=== PATIENT | female | born 1955 | race African-American/Black ===

== ENCOUNTER 2016-12-06 12:41 | Emergency (ER) | payer OTHER ==
[~2016-12-06] VITALS: Ht 160 cm; Wt 116.0 kg
[~2016-12-06 12:41] MED LIST: ADVIN25/60 INH; ALBU1AER9 INH; ASPI81TA28 PO; BSP/10 PO; BUPRTAB PO; CETI10CA PO; DSY/150 PO; GDN80 PO; HYDR50CA2 PO; ISOS30TA13 PO; LPR25 PO; MELO7.5T7 PO; RMRS/45 PO
[2016-12-06 12:45] VITALS: TEMP 36.5; Ht 160 cm; Wt 116.0 kg
[2016-12-06] MEDS ORDERED: VNTHFA/IN INH (13:16)
[2016-12-06] MEDS ORDERED: ISOS-11 PO (13:16)
[2016-12-06] MEDS ORDERED: LORAZEPAM 1 MG TAB PO STA (13:37)
--- NOTE | 2016-12-06 14:17 | DIAGNOSTIC IMAGING REPORT ---
CT SCAN OF THE BRAIN WITHOUT IV CONTRAST CLINICAL HISTORY: Headache. COMPARISON STUDY: CT of the brain dated 07/18/2013. TECHNIQUE: Unenhanced axial CT scan of the brain is performed from the vertex to the skull base. Automated dose control exposure was utilized. FINDINGS: Brain parenchyma: The brain parenchyma is normal in appearance. There is no hemorrhage, mass effect, or evidence of acute territorial ischemia by CT criteria. Liz-white matter is preserved. No extra-axial fluid collection is seen. Ventricles, sulci, cisterns: Normal in configuration. Intracranial vasculature: The visualized intracranial vasculature at the skull base is normal in appearance. Calvarium: The calvarium appears intact. A bone island is incidentally noted in the clivus end unchanged. Sinuses and mastoids: The visualized paranasal sinuses are clear. The mastoid air cells are well pneumatized. Orbits: The bony orbits are grossly intact. Minimal proptosis is suggested. IMPRESSION: No acute intracranial abnormality. Electronically signed by: Dale Buchanan M.D. 12/06/2016 2:15 PM Dictated Date/Time: 12/06/2016 2:09 PM
--- NOTE | 2016-12-06 14:19 | DIAGNOSTIC IMAGING REPORT ---
SINUS CT WITHOUT CONTRAST CLINICAL HISTORY: Right-sided headache. COMPARISON STUDY: Head CT July 18, 2013. Technique: Helical axial images of the sinuses were obtained without IV contrast. Coronal reformats were viewed. FINDINGS: The head CT will be reported separately. The mastoid air cells are clear. Note is made of apparent proptosis, greater on the right. There is minimal mucosal thickening of the sinuses. Major drainage pathways are patent. There is no mass within the sinuses or the nasal cavity. There is minimal leftward deviation of the nasal septum without significant spur formation. IMPRESSION: Minimal mucosal thickening of the sinuses. No evidence of acute sinusitis. Patent major drainage pathways. Electronically signed by: mEiliano Porras M.D. 12/06/2016 2:17 PM Dictated Date/Time: 12/06/2016 2:09 PM
[2016-12-06] MEDS ORDERED: KETOROLAC TROMETHAMINE 60 MG/2 ML VIAL IM STA (14:58)
[2016-12-06] MEDS ORDERED: OXYCODONE/ACETAMINOPHEN 5-325 TAB PO ONE (15:00)
[2016-12-06] MEDS ORDERED: LEVO500T19 PO (15:03)
--- NOTE | 2016-12-06 15:04 | EMERGENCY ROOM VISIT NOTE ---
History Report prepared by Francesca: Keli Silvestre Under the Supervision of: Dr. Anish Jones D.O. First contact with patient: 13:28 Chief Complaint: HEADACHE Stated Complaint: HAD FLU, STARTED GETTING HEADACHES ON R SIDE History of Present Illness The patient is a 61 year old female who presents to the Emergency Room with complaints of a persistent headache on the right side of her head for the past week. She currently rates her discomfort as an 8/10 in severity. The patient states that at beginning of the year she was diagnosed with the flu. She states that last week she developed the headache. The patient states that she still has a persistent productive cough. She states that she went to her dentist because she thought her headache was from dental pain. The patient states that she had x-rays did not show anything so she states that her dentist told her to see her PCP for a possible gum infection or sinus infection. The patient states that she just finished Azithromycin for her flu symptoms. The patient denies any nausea or increased shortness of breath. She notes that each morning she has been waking up feeling dry with a dry cough. Source of History: patient Onset: past week Position: head (right side) Symptom Intensity: 8/10 Timing: other (persistent) Associated Symptoms: + cough, No SOB, No nausea Review of Systems See HPI for pertinent positives & negatives. A total of 10 systems reviewed and were otherwise negative. Past Medical & Surgical Medical Problems: (1) Mass of uterus Family History FHx: cancer Social History Smoking Status: Current Every Day Smoker Marital Status: single Occupation Status: unemployed, disabled Current/Historical Medications Scheduled Albuterol Hfa (Ventolin Hfa), 2 PUFFS INH QID Aspirin (Aspirin Ec), 81 MG PO DAILY Bupropion Hcl (Wellbutrin Xl), 150 MG PO BID Buspirone HCl (Buspirone HCl), 20 MG PO BID Cetirizine Hcl (Zyrtec Allergy), 10 MG PO DAILY Fluticasone Prop/Salmeterol (Advair Diskus 250/50 60 Dose), 1 PUFF INH BID Isosorbide Mononitrate (Isosorbide Mononitrate ER), 30 MG PO DAILY Levofloxacin (Levaquin), 1 TAB PO DAILY Metoprolol Tartrate (Lopressor), 12.5 MG PO BID Ziprasidone (Ziprasidone HCl), 80 MG PO BID Scheduled PRN Hydroxyzine Pamoate (Vistaril), 50 MG PO Q8 PRN for Anxiety Meloxicam (Mobic), 7.5-15 MG PO DAILY PRN for Pain Mirtazapine (Mirtazapine), 45 MG PO HS PRN for Sleep Allergies Coded Allergies: No Known Allergies (Unverified , 12/06/16) Physical Exam Vital Signs Date Time Temp Pulse Resp B/P Pulse Ox O2 Delivery O2 Flow Rate FiO2 12/06/16 14:37 65 18 124/62 98 Room Air 12/06/16 12:45 36.5 77 18 147/101 96 Room Air Physical Exam CONSTITUTIONAL/VITAL SIGNS: Reviewed / noted above. GENERAL: Non-toxic in appearance. INTEGUMENTARY: Warm, dry, and [place]. HEAD: Normocephalic. Tenderness to percussion of right maxillary sinus. EYES: without scleral icterus or trauma. ENT/OROPHARYNX: clear and moist. LYMPHADENOPATHY/NECK: Is supple without lymphadenopathy or meningismus. RESPIRATORY: Lungs clear and equal. CARDIOVASCULAR: Regular rate and rhythm. GI/ABDOMEN: Soft and nontender. No organomegaly or pulsatile mass. No rebound or guarding. Normal bowel sounds. EXTREMITIES: Warm and well perfused. BACK: No CVA tenderness. NEUROLOGICAL: Intact without focal deficits. PSYCHIATRIC: normal affect. MUSCULOSKELETAL: Normally developed with good muscle tone. Medical Decision & Procedures ER Provider Diagnostic Interpretation: CT results as stated below per my review and radiologist interpretation: SINUS CT WITHOUT CONTRAST CLINICAL HISTORY: Right-sided headache. COMPARISON STUDY: Head CT July 18, 2013. Technique: Helical axial images of the sinuses were obtained without IV contrast. Coronal reformats were viewed. FINDINGS: The head CT will be reported separately. The mastoid air cells are clear. Note is made of apparent proptosis, greater on the right. There is minimal mucosal thickening of the sinuses. Major drainage pathways are patent. There is no mass within the sinuses or the nasal cavity. There is minimal leftward deviation of the nasal septum without significant spur formation. IMPRESSION: Minimal mucosal thickening of the sinuses. No evidence of acute sinusitis. Patent major drainage pathways. Electronically signed by: Emiliano Porras M.D. 12/06/2016 2:17 PM Dictated Date/Time: 12/06/2016 2:[address] SCAN OF THE BRAIN WITHOUT IV CONTRAST CLINICAL HISTORY: Headache. COMPARISON STUDY: CT of the brain dated 07/18/2013. TECHNIQUE: Unenhanced axial CT scan of the brain is performed from the vertex to the skull base. Automated dose control exposure was utilized. FINDINGS: Brain parenchyma: The brain parenchyma is normal in appearance. There is no hemorrhage, mass effect, or evidence of acute territorial ischemia by CT criteria. Liz-white matter is preserved. No extra-axial fluid collection is seen. Ventricles, sulci, cisterns: Normal in configuration. Intracranial vasculature: The visualized intracranial vasculature at the skull base is normal in appearance. Calvarium: The calvarium appears intact. A bone island is incidentally noted in the clivus end unchanged. Sinuses and mastoids: The visualized paranasal sinuses are clear. The mastoid air cells are well pneumatized. Orbits: The bony orbits are grossly intact. Minimal proptosis is suggested. IMPRESSION: No acute intracranial abnormality. Electronically signed by: Dale Buchanan M.D. 12/06/2016 2:15 PM Dictated Date/Time: 12/06/2016 2:09 PM Medications Administered Medications (Trade) Dose Ordered Sig/Bib Route Start Time Stop Time Status Last Admin Dose Admin Lorazepam (Ativan Tab) 1 mg NOW STAT PO 12/06/16 13:37 12/06/16 13:39 DC 12/06/16 13:52 1 MG ED Course 1329: Previous medical records were reviewed. The patient was evaluated in room C12B. A complete history and physical examination was performed. 1337: Ordered Ativan Tab 1 mg PO. 1456: I reevaluated the patient and she is resting comfortably. I discussed the exam findings and I discussed the treatment plan. She verbalized complete understanding and agreement. She is ready to go home. 1458: Ordered Toradol Inj 60 mg IM. 1500: Ordered Oxycodone/Acetaminophen 1 tab PO. Medical Decision Differential includes: Acute intracranial bleed, trauma, meningitis, encephalitis, increased intracranial pressure, mass or mass effect, facial or dental infection, temporal arteritis, CVA, TIA, acute hypertensive emergency, sinusitis, carbon monoxide exposure. This is a 61-year-old female who presents to the ED with chief complaint of right-sided headache. The patient has had some recent flulike illnesses. She states that her voice is hoarse. She also has a cough. She states that her right ear is bothering her. She initially thought it might be related to a dental infection but saw dentist and they states that she does not have an infection. She is concerned about a sinus infection. Her exam revealed some tenderness to percussion over the right maxillary sinus. Exam was otherwise unremarkable. No abnormal ocular findings or tenderness to the temporal area. She is no facial swelling. Tympanic membrane was clear. There is no exudative pharyngitis or significant erythema. CT scan of the brain and sinuses did not show any acute process. The patient was treated with Toradol IM and Percocet by mouth. Per the patient's request, she was at an additional antibiotic. She'll be given Levaquin for 7 days. She does sound like she has laryngitis on exam in addition to the above findings. Impression Primary Impression: Headache Additional Impression: Upper respiratory infection Scribe Attestation The scribe's documentation has been prepared under my direction and personally reviewed by me in its entirety. I confirm that the note above accurately reflects all work, treatment, procedures, and medical decision making performed by me. Departure Information Dispostion Home / Self-Care Prescriptions Levofloxacin (LEVAQUIN) 500 Mg Tab 1 TAB PO DAILY for 7 Days, #7 TAB Prov: Anish Jones D.O. 12/06/16 Referrals Heidi Quintero M.D. (PCP) Forms HOME CARE DOCUMENTATION FORM, IMPORTANT VISIT INFORMATION Patient Instructions [facility] Additional Instructions Levaquin as prescribed. Follow-up with your doctor for further care and evaluation in 5-7 days if symptoms persist. Return to the emergency department for worsening or new symptoms or any concerns. You have been examined and treated today on an emergency basis only. This is not a substitute for, or an effort to provide, complete comprehensive medical care. It is impossible to recognize and treat all injuries or illnesses in a single emergency department visit. It is therefore important that you follow up closely with your doctor. Call as soon as possible for an appointment. Problem Qualifiers
[2016-12-06 15:32] VITALS: BP 125/62; PULSE 63; O2SAT 98
== END 2016-12-06 15:34 | disposition home or self-care (01) ==
LOC: C.EDB 12:43 → C.EDC 15:34
DX: R51 Headache (principal); J06.9 Acute upper respiratory infection, unspecified; F17.200 Nicotine dependence, unspecified, uncomplicated; Z79.82 Long term (current) use of aspirin

== ENCOUNTER 2017-12-24 10:06 | Emergency (ER) | payer OTHER ==
[~2017-12-24] VITALS: Ht 160 cm; Wt 109.0 kg
[~2017-12-24 10:06] MED LIST changes: -ALBU1AER9 INH; -DSY/150 PO; +ISOS-11 PO; -ISOS30TA13 PO; +VNTHFA/IN INH
[2017-12-24 10:24] VITALS: TEMP 36.7; Ht 160 cm; Wt 109.0 kg
[2017-12-24] MEDS ORDERED: OXYCODONE HCL IR 5 MG TAB (IMMEDIATE RELEASE) PO STA (11:07)
[2017-12-24] MEDS ORDERED: MELO7.5T5 PO (11:27)
[2017-12-24] MEDS ORDERED: QUET1TAB34 PO (11:27)
[2017-12-24] MEDS ORDERED: GABA-112 PO (11:27)
--- NOTE | 2017-12-24 11:38 | DIAGNOSTIC IMAGING REPORT ---
HEAD WITHOUT CONTRAST (CT) CT DOSE: 1185.47 mGy.cm HISTORY: Mental status change CHI c/ LOC TECHNIQUE: Multiaxial CT images of the head were performed without the use of intravenous contrast. A dose lowering technique was utilized adhering to the principles of ALARA. Comparison: 12/06/2016 Findings: The paranasal sinuses and mastoid air cells are clear. The calvarium and skull base are intact. The ventricles and sulci are within normal limits. There is no mass, hematoma, midline shift, or acute infarct. Mild chronic small vessel change. Impression: No acute intracranial abnormality. The above report was generated using voice recognition software. It may contain grammatical, syntax or spelling errors. Electronically signed by: Nick Duke M.D. 12/24/2017 11:36 AM Dictated Date/Time: 12/24/2017 11:35 AM
--- NOTE | 2017-12-24 11:51 | DIAGNOSTIC IMAGING REPORT ---
CT SCAN OF THE CERVICAL SPINE CLINICAL HISTORY: Fall with head injury. COMPARISON STUDY: Radiographs of the cervical spine dated 03/15/2014. TECHNIQUE: CT scan of the cervical spine is performed from the skull base to the upper thoracic spine. Images are reviewed in the axial, sagittal, and coronal planes. IV contrast was not administered for this examination. A dose lowering technique was utilized adhering to the principles of ALARA. FINDINGS: Skeletal structures: The skeletal structures are osteopenic. There is no evidence of fracture or subluxation involving the cervical spine. Vertebral body height and alignment are maintained. There is straightening of the cervical lordosis. The odontoid process and lateral masses are intact. The atlantoaxial articulation is preserved noting productive degenerative change. Anterior osteophytes are seen in the mid to lower cervical region. The spinous processes appear intact. There is partial bony fusion of the right transverse process of C7 and the right first rib. There is mild to moderate multilevel cervical spondylosis. Uncovertebral and facet arthropathy contribute to neural foraminal narrowing in the lower cervical region at several levels. Intervertebral discs: Mild disc space narrowing is seen at C4-C5 and C5-C6. The remaining disc spaces appear maintained. Central canal: Posterior disc osteophyte complexes at C4-C5 and C5-C6 likely contribute to acquired compromise of the central canal. Soft tissues: The prevertebral and paraspinous soft tissues are within normal limits. Findings suggest multinodular goiter, with the left thyroid lobe extending to the superior mediastinum. Calvarium: The visualized calvarium at the skull base appears intact. Brain parenchyma: Partially visualized brain parenchyma the skull base is within normal limits. Sinuses and mastoids: The visualized paranasal sinuses are clear. The mastoid air cells are well pneumatized. Lung apices: Clear as visualized. IMPRESSION: 1. There is no evidence of fracture or subluxation involving the cervical spine. 2. Osteopenia and spondylotic change as above. 3. Findings suggest multinodular goiter. Follow-up with a nonemergent thyroid ultrasound is recommended for further assessment. Electronically signed by: Dale Buchanan M.D. 12/24/2017 11:50 AM Dictated Date/Time: 12/24/2017 11:47 AM
--- NOTE | 2017-12-24 12:36 | DIAGNOSTIC IMAGING REPORT ---
LUMBAR SPINE 5 VIEWS CLINICAL HISTORY: Fall with low back pain. FINDINGS: Five views of the lumbar spine are compared to study dated 07/18/2013. The skeletal structures are osteopenic. There is no radiographic evidence of fracture or malalignment. Vertebral body height is maintained throughout the lumbar spine. Minimal anterolisthesis is seen at L4-L5. Alignment is otherwise preserved. The transverse and spinous processes appear intact. There is no evidence of spondylolysis. Moderate facet arthropathy is seen in the lower lumbar region. Tiny anterior osteophytes are noted throughout. There is mild disc space narrowing at L4-L5. The remaining disc spaces are preserved. The visualized bony pelvis appears intact. Large enthesophytes arise from the anterior superior iliac spine bilaterally. No bowel obstruction is seen. Vascular calcifications and phleboliths are observed in the pelvis. Atherosclerotic calcification is noted in the abdominal aorta. IMPRESSION: 1. No acute bony abnormality is seen involving the lumbar spine. 2. Osteopenia and mild spondylotic change as above. Dictated: 12/24/2017 11:55 AM Transcribed: 12/24/2017 12:36 PM [email or web address] Electronically signed by: Dale Buchanan M.D. 12/24/2017 12:38 PM Dictated Date/Time: 12/24/2017 11:55 AM
[2017-12-24] MEDS ORDERED: OXYC1TAB3 PO (13:11)
[2017-12-24 13:20] VITALS: BP 167/89; PULSE 78; O2SAT 99
--- NOTE | 2017-12-24 21:21 | EMERGENCY ROOM VISIT NOTE ---
History First contact with patient: 10:55 Chief Complaint: PAIN (GENERALIZED) Stated Complaint: HEAD INJURY, BLOODY NOSE, BLURRED VISION History of Present Illness The patient is a 62 year old female who presents to the Emergency Room with complaints of persistent headache, neck pain and epistaxis. The patient reports that she fell 10/14/18, striking her head on a wall. She also reports sustaining a left shoulder dislocation. This happened when she was in [place]. She was [facility] [place]. She had the shoulder reduced and was provided a sling. The patient reports that she was instructed to follow-up with an orthopedic surgeon, however does not have a local family doctor or surgeon. She has an appointment to see a new family doctor tomorrow. The patient reports that she did not have any further imaging studies of her head and neck. The patient reports that she was provided a prescription for hydrocodone which is not helping with her shoulder pain. She rates her headache a 6 out of 10. The patient is right-hand- dominant. She denies any back pain, chest pain, shortness of breath or abdominal pain. Review of Systems 10 system review was performed and was negative except for pertinent positives and negatives as indicated in history of present illness Past Medical/Surgical History Medical Problems: (1) Anxiety State Nos (2) Asthma, Unspecified (3) Calcif Tendinitis Shlder (4) Coronary Atherosclerosis Of [place] Coronary Vessel (5) Depressive Disorder Nec (6) Hyperlipidemia Nec/Nos (7) Lumbago (8) Lumbosacral Neuritis Nos (9) Mass of uterus (10) Morbid Obesity Family History FH: hypertension FHx: cancer Social History Smoking Status: Current Every Day Smoker Alcohol Use: occasionally Marital Status: single Occupation Status: unemployed, disabled Current/Historical Medications Scheduled Gabapentin (Neurontin), 100 MG PO TID Quetiapine Fumarate (Seroquel), 100 MG PO PM Scheduled PRN Meloxicam (Mobic), 15 MG PO DAILY PRN for Pain Oxycodone Ir (Roxicodone Ir), 1-2 TAB PO Q4H PRN for Pain Physical Exam Vital Signs Date Time Temp Pulse Resp B/P (MAP) Pulse Ox O2 Delivery O2 Flow Rate FiO2 12/24/17 13:20 78 18 167/89 99 12/24/17 10:24 36.7 81 18 185/100 99 Room Air Physical Exam CONSTITUTIONAL: Obese female, alert and oriented X 3 with positive affect. Patient appears in mild discomfort on my exam. HEENT: Normocephalic, atraumatic. Pupils equal, round and reactive. No subconjunctival hemorrhage, raccoon's eyes, epistaxis, hemotympanum or Maradiaga sign. NECK: The patient is exhibiting full active range of motion without any obvious discomfort. RESPIRATORY: Clear to auscultation bilaterally with no wheezing, crackles, rhonchi or stridor. CARDIOVASCULAR: Regular rate and rhythm with no murmurs, rubs or gallops. GASTROINTESTINAL: Bowel sounds present in all quadrants. Soft and nontender to palpation. MUSCULOSKELETAL: Examination shows general tenderness to palpation about the entire left shoulder. No significant pain with gentle internal or external rotation. Equal hand care clinician bilaterally. Capillary refill is less than 2 seconds. The patient has no tenderness to palpation through the central thoracolumbar spine. Distal pulses are intact. INTEGUMENTARY: No rash or other significant dermatologic conditions noted. NEUROLOGIC: Cranial nerves II-XII grossly intact. No focal neurologic deficits noted. Upper extremities are sensory intact. No ataxia with ambulation. Medical Decision & Procedures ER Provider Diagnostic Interpretation: Noncontrast CT of the cervical spine does not show any acute fractures. A multinodular goiter is suspected. Radiologist report is as follows: CT SCAN OF THE CERVICAL SPINE CLINICAL HISTORY: Fall with head injury. COMPARISON STUDY: Radiographs of the cervical spine dated 03/15/2014. TECHNIQUE: CT scan of the cervical spine is performed from the skull base to the upper thoracic spine. Images are reviewed in the axial, sagittal, and coronal planes. IV contrast was not administered for this examination. A dose lowering technique was utilized adhering to the principles of ALARA. FINDINGS: Skeletal structures: The skeletal structures are osteopenic. There is no evidence of fracture or subluxation involving the cervical spine. Vertebral body height and alignment are maintained. There is straightening of the cervical lordosis. The odontoid process and lateral masses are intact. The atlantoaxial articulation is preserved noting productive degenerative change. Anterior osteophytes are seen in the mid to lower cervical region. The spinous processes appear intact. There is partial bony fusion of the right transverse process of C7 and the right first rib. There is mild to moderate multilevel cervical spondylosis. Uncovertebral and facet arthropathy contribute to neural foraminal narrowing in the lower cervical region at several levels. Intervertebral discs: Mild disc space narrowing is seen at C4-C5 and C5-C6. The remaining disc spaces appear maintained. Central canal: Posterior disc osteophyte complexes at C4-C5 and C5-C6 likely contribute to acquired compromise of the central canal. Soft tissues: The prevertebral and paraspinous soft tissues are within normal limits. Findings suggest multinodular goiter, with the left thyroid lobe extending to the superior mediastinum. Calvarium: The visualized calvarium at the skull base appears intact. Brain parenchyma: Partially visualized brain parenchyma the skull base is within normal limits. Sinuses and mastoids: The visualized paranasal sinuses are clear. The mastoid air cells are well pneumatized. Lung apices: Clear as visualized. IMPRESSION: 1. There is no evidence of fracture or subluxation involving the cervical spine. 2. Osteopenia and spondylotic change as above. 3. Findings suggest multinodular goiter. Follow-up with a nonemergent thyroid ultrasound is recommended for further assessment. Noncontrast CT of the head shows no evidence for fracture or intracranial bleed. Radiologist report is as follows: HEAD WITHOUT CONTRAST (CT) CT DOSE: 1185.47 mGy.cm HISTORY: Mental status change CHI c/ LOC TECHNIQUE: Multiaxial CT images of the head were performed without the use of intravenous contrast. A dose lowering technique was utilized adhering to the principles of ALARA. Comparison: 12/06/2016 Findings: The paranasal sinuses and mastoid air cells are clear. The calvarium and skull base are intact. The ventricles and sulci are within normal limits. There is no mass, hematoma, midline shift, or acute infarct. Mild chronic small vessel change. Impression: No acute intracranial abnormality. My interpretation of lumbar spine x-rays does not show any acute fractures, subluxations or spondylolisthesis. Radiologist report is as follows: Medications Administered Medications (Trade) Dose Ordered Sig/Bib Route Start Time Stop Time Status Last Admin Dose Admin Oxycodone HCl (Roxicodone Immediate Rel Tab) 5 mg NOW STAT PO 12/24/17 11:07 12/24/17 11:10 DC 12/24/17 11:18 5 MG ED Course Patient history and physical exam were performed. Nurse's notes were reviewed. Vital signs were reviewed, showing a blood pressure 185/100. The patient requested something for her shoulder pain. The patient was administered OxyIR 5 mg after confirming that she would be able to secure a ride home. She is concerned that CT imaging was not performed of her head and neck when she fell. Noncontrast CT of the head and cervical spine today were normal. The patient was advised that she likely has a concussion given her persistent headache. The patient's primary complaint today is persistent left shoulder pain. I suggested that she follow-up with orthopedics for further reevaluation and management. The patient reports that she has been seen in the past at [facility]. She was encouraged to follow-up with them, but then stated that she would rather have someone closer to her home near [facility]. She was provided contact information for Dr. Reyes who was actually protection manager today. The [place] Prescription Drug Monitoring Program was reviewed , including prescription history from [place] which confirms that she did receive a prescription for 15 hydrocodone tablets that were filled on 12/15/17. The patient was provided an additional prescription for OxyIR 5 mg, dispensed # 15 with no refills. The patient voiced understanding of all discharge instructions, was happy with plan of care, and rated her discomfort a 6 out of 10 at the conclusion of my exam. The patient was instructed to follow-up with her PCP for blood pressure recheck as it is elevated in the emergency department. The patient was also instructed to have her family doctor perform further workup for her enlarged thyroid gland that is seen on CT studies today. Medical Decision [place] Drug Monitoring Program Search Results: patient reviewed within database, no issues identified Medication Reconcilliation Current Medication List: was personally reviewed by me Blood Pressure Screening Patient's blood pressure: Elevated blood pressure Blood pressure disposition: Referred to PCP Impression Primary Impression: Concussion Additional Impressions: Cervical strain, acute Left shoulder pain History of closed shoulder dislocation Elevated blood pressure reading with diagnosis of hypertension Thyromegaly Departure Information Prescriptions Oxycodone Ir (Roxicodone Ir) 5 Mg Tab 1-2 TAB PO Q4H Y for Pain, #15 TAB For Initial Treatment Prov: Jeb Aguilera PA 12/24/17 Referrals No Doctor, Assigned (PCP) Patient Instructions My [facility] Health Problem Qualifiers Primary Impression: Concussion Encounter type: initial encounter Loss of consciousness presence/duration: without LOC Qualified Codes: S06.0X0A - Concussion without loss of consciousness, initial encounter Additional Impressions: Cervical strain, acute Encounter type: initial encounter Qualified Codes: S16.1XXA - Strain of muscle, fascia and tendon at neck level, initial encounter Left shoulder pain Chronicity: acute Qualified Codes: M25.512 - Pain in left shoulder
== END 2017-12-24 13:21 | disposition home or self-care (01) ==
LOC: C.EDB 10:08 → C.EDD 13:21
DX: S06.0X0A Concussion without loss of consciousness, initial encounter (principal); S16.1XXA Strain of muscle, fascia and tendon at neck level, initial encounter; M25.512 Pain in left shoulder; Z87.828 Personal history of other (healed) physical injury and trauma; R03.0 Elevated blood-pressure reading, without diagnosis of hypertension; E01.0 Iodine-deficiency related diffuse (endemic) goiter; W01.198A Fall on same level from slipping, tripping and stumbling with subsequent striking against other object, initial encounter; J45.909 Unspecified asthma, uncomplicated; I25.10 Atherosclerotic heart disease of native coronary artery without angina pectoris; E66.01 Morbid (severe) obesity due to excess calories; F41.9 Anxiety disorder, unspecified; F32.9 Major depressive disorder, single episode, unspecified; F17.200 Nicotine dependence, unspecified, uncomplicated; Z82.49 Family history of ischemic heart disease and other diseases of the circulatory system; Z79.899 Other long term (current) drug therapy

== ENCOUNTER → 2018-03-05 | Outpatient (CLI) | payer OTHER ==
[~2018-03-05] MED LIST changes: -ADVIN25/60 INH; -ASPI81TA28 PO; -BSP/10 PO; -BUPRTAB PO; -CETI10CA PO; +GABA-112 PO; -GDN80 PO; -HYDR50CA2 PO; -ISOS-11 PO; +LEVO-366 PO; -LPR25 PO; +MELO7.5T5 PO; -MELO7.5T7 PO; +MTR800 PO; +NRN600 PO; +NRN800 PO; +OXYC1TAB3 PO; +QUET1TAB34 PO; +QUET1TAB37 PO; -RMRS/45 PO; +ULT50 PO; -VNTHFA/IN INH
--- NOTE | 2018-03-05 12:13 | DIAGNOSTIC IMAGING REPORT ---
SOFT TISS HEAD/NECK-THYROID HISTORY: Thyroid enlargement NON TOXIC GOITER COMPARISON: None. FINDINGS: Right lobe: Maximum dimension 4.8 cm. Diffuse heterogeneity. No significant nodularity although minimal pseudonodularity measures 2 7 mm. Left lobe: Diffuse heterogeneity. Maximum dimension 4.8 cm. Several closely opposed to complex cystic nodules measuring up to 9 mm. In overall conglomerate dimension of 1.9 x 1.7 cm. Isthmus: No nodules. IMPRESSION: Diffusely heterogeneous multicystic multinodular thyroid . Follow-up includes the option of six-month follow-up versus fine-needle aspiration of the cluster of complex nodules in the mid left thyroid. The above report was generated using voice recognition software. It may contain grammatical, syntax or spelling errors. Electronically signed by: Nick Duke M.D. 03/05/2018 12:11 PM Dictated Date/Time: 03/05/2018 12:08 PM
[2018-03-05 12:46] LABS: HEMATOCRIT 40.4 % (37-47); HEMOGLOBIN 13.6 g/dL (12.0-16.0); MEAN CELL VOLUME 80.6 fL (80-100); MEAN CORPUSCULAR HEMOGLOBIN 27.1 pg (25-34); MEAN CORPUSCULAR HGB CONC 33.7 g/dl (32-36); MEAN PLATELET VOLUME 9.7 fL (7.4-10.4); PLATELET COUNT 342 K/uL (130-400); RED CELL DISTRIBUTION WIDTH CV 14.4 % (11.5-14.5); RED CELL DISTRIBUTION WIDTH SD 41.8 fL (36.4-46.3); WHITE BLOOD COUNT 8.43 K/uL (4.8-10.8)
[2018-03-05 13:06] LABS: ALBUMIN 3.5 gm/dl (3.4-5.0); ALT/SGPT 26 U/L (12-78); AST/SGOT 19 U/L (15-37); BLOOD UREA NITROGEN 11 mg/dl (7-18); CALCIUM 9.1 mg/dl (8.5-10.1); CARBON DIOXIDE 28 mmol/L (21-32); CREATININE 0.73 mg/dl (0.60-1.20); GLUCOSE 94 mg/dl (70-99); POTASSIUM 3.8 mmol/L (3.5-5.1); SODIUM 137 mmol/L (136-145)
[2018-03-05 13:17] LABS: ALKALINE PHOSPHATASE 97 U/L (45-117); TOTAL PROTEIN 7.7 gm/dl (6.4-8.2)
== END | disposition home or self-care (01) ==
LOC: C.ULTR 11:28
PROVIDERS: ATTEND Family Medicine
DX: E04.9 Nontoxic goiter, unspecified (principal)

== ENCOUNTER 2018-03-10 18:13 | Emergency (ER) | payer OTHER ==
[~2018-03-10] VITALS: Ht 162.6 cm; Wt 109.6 kg
[~2018-03-10 18:13] MED LIST changes: -LEVO-366 PO; -MTR800 PO; -NRN600 PO; -NRN800 PO; -QUET1TAB37 PO; -ULT50 PO
[2018-03-10 18:17] VITALS: Ht 162.6 cm; Wt 109.6 kg
[2018-03-10] MEDS ORDERED: SODIUM CHLORIDE 0.9% 1000ML 1,000 ML IV STA (18:31)
[2018-03-10] MEDS ORDERED: KETOROLAC TROMETHAMINE 30 MG/ML VIAL IV STA (18:31)
--- NOTE | 2018-03-10 18:32 | EMERGENCY ROOM VISIT NOTE ---
History Report prepared by Francesca: Ruben Santos Under the Supervision of: Dr. Anish Jones D.O. First contact with patient: 18:22 Chief Complaint: CARDIAC ASSESSMENT Stated Complaint: HEADACHE,BACK/CHEST PAIN History of Present Illness The patient is a 62 year old female who presents to the Emergency Room with complaints of a persistent cough that she has been experiencing for the past few days. The cough is producing a yellow mucous. The patient also makes several other complaints such as some chest pain, back pain, abdominal pain and headaches. She has had a sorethroat as well. Source of History: patient Onset: Past few days Position: chest Quality: other (cough) Timing: other (persistent) Associated Symptoms: + sorethroat, + chest pain, + abdominal pain, + back pain Review of Systems See HPI for pertinent positives & negatives. A total of 10 systems reviewed and were otherwise negative. Past Medical & Surgical Medical Problems: (1) Anxiety State Nos (2) Asthma, Unspecified (3) Calcif Tendinitis Shlder (4) Coronary Atherosclerosis Of [place] Coronary Vessel (5) Depressive Disorder Nec (6) Hyperlipidemia Nec/Nos (7) Lumbago (8) Lumbosacral Neuritis Nos (9) Mass of uterus (10) Morbid Obesity Family History FH: hypertension FHx: cancer Social History Smoking Status: Never Smoker Alcohol Use: occasionally Marital Status: single Occupation Status: unemployed, disabled Current/Historical Medications Scheduled Gabapentin (Gabapentin), 600 MG PO BID Levofloxacin (Levaquin), 500 MG PO DAILY Quetiapine Fumarate (Seroquel), 300 MG PO HS Scheduled PRN Gabapentin (Gabapentin), 800 MG PO TID PRN for Pain Ibuprofen (Ibuprofen), 800 MG PO Q8 PRN for Pain Tramadol HCl (Tramadol HCl), 100 MG PO Q8 PRN for Pain Allergies Coded Allergies: No Known Allergies (Unverified , 12/24/17) Physical Exam Vital Signs Date Time Temp Pulse Resp B/P (MAP) Pulse Ox O2 Delivery O2 Flow Rate FiO2 03/10/18 19:38 75 03/10/18 19:13 69 24 164/108 97 Room Air 03/10/18 18:29 Room Air 03/10/18 18:17 37.0 89 24 166/98 99 Room Air Physical Exam CONSTITUTIONAL/VITAL SIGNS: Reviewed / noted above. GENERAL: Non-toxic in appearance. INTEGUMENTARY: Warm, dry, and [place]. HEAD: Normocephalic. EYES: without scleral icterus or trauma. ENT/OROPHARYNX: clear and moist. LYMPHADENOPATHY/NECK: Is supple without lymphadenopathy or meningismus. RESPIRATORY: Lungs clear and equal. CARDIOVASCULAR: Regular rate and rhythm. GI/ABDOMEN: Soft and nontender. No organomegaly or pulsatile mass. No rebound or guarding. Normal bowel sounds. EXTREMITIES: Warm and well perfused. BACK: No CVA tenderness. NEUROLOGICAL: Intact without focal deficits. PSYCHIATRIC: normal affect. MUSCULOSKELETAL: Normally developed with good muscle tone. Medical Decision & Procedures ER Provider Diagnostic Interpretation: Radiology results as stated below per my review and radiologist interpretation: CHEST ONE VIEW PORTABLE CLINICAL HISTORY: Evaluate Fever/Sepsis fever COMPARISON STUDY: 01/20/2014 FINDINGS: Interstitial prominence in the mid to lower lung regions bilaterally. Pulmonary apices are clear. The diaphragms are smooth. IMPRESSION: Early parenchymal interstitial infiltrates in the mid to lower lung regions bilaterally. The above report was generated using voice recognition software. It may contain grammatical, syntax or spelling errors. Electronically signed by: Nick Duke M.D. 03/10/2018 6:46 PM Dictated Date/Time: 03/10/2018 6:45 PM Laboratory Results 03/10/18 18:50 Red Blood Count 5.29, Mean Corpuscular Volume 80.0, Mean Corpuscular Hemoglobin 26.8, Mean Corpuscular Hemoglobin Concent 33.6, Mean Platelet Volume 9.3, Neutrophils (%) (Auto) 59.8, Lymphocytes (%) (Auto) 26.4, Monocytes (%) (Auto) 11.8, Eosinophils (%) (Auto) 1.3, Basophils (%) (Auto) 0.6, Neutrophils # (Auto ) 4.20, Lymphocytes # (Auto) 1.85, Monocytes # (Auto) 0.83, Eosinophils # (Auto ) 0.09, Basophils # (Auto) 0.04 03/10/18 18:50 Test 03/10/18 18:50 White Blood Count 7.02 K/uL (4.8-10.8) Red Blood Count 5.29 M/uL (4.2-5.4) Hemoglobin 14.2 g/dL (12.0-16.0) Hematocrit 42.3 % (37-47) Mean Corpuscular Volume 80.0 fL (80-100) Mean Corpuscular Hemoglobin 26.8 pg (25-34) Mean Corpuscular Hemoglobin Concent 33.6 g/dl (32-36) Platelet Count 305 K/uL (130-400) Mean Platelet Volume 9.3 fL (7.4-10.4) Neutrophils (%) (Auto) 59.8 % Lymphocytes (%) (Auto) 26.4 % Monocytes (%) (Auto) 11.8 % Eosinophils (%) (Auto) 1.3 % Basophils (%) (Auto) 0.6 % Neutrophils # (Auto) 4.20 K/uL (1.4-6.5) Lymphocytes # (Auto) 1.85 K/uL (1.2-3.4) Monocytes # (Auto) 0.83 K/uL (0.11-0.59) Eosinophils # (Auto) 0.09 K/uL (0-0.5) Basophils # (Auto) 0.04 K/uL (0-0.2) RDW Standard Deviation 41.5 fL (36.4-46.3) RDW Coefficient of Variation 14.4 % (11.5-14.5) Immature Granulocyte % (Auto) 0.1 % Immature Granulocyte # (Auto) 0.01 K/uL (0.00-0.02) Anion Gap 6.0 mmol/L (3-11) Est Creatinine Clear Calc Drug Dose 84.2 ml/min Estimated GFR () 85.1 Estimated GFR (Non- 73.4 BUN/Creatinine Ratio 10.6 (10-20) Calcium Level 8.9 mg/dl (8.5-10.1) Total Bilirubin 0.3 mg/dl (0.2-1) Direct Bilirubin < 0.1 mg/dl (0-0.2) Aspartate Amino Transf (AST/SGOT) 21 U/L (15-37) Alanine Aminotransferase (ALT/SGPT) 25 U/L (12-78) Alkaline Phosphatase 108 U/L (45-117) Troponin I < 0.015 ng/ml (0-0.045) Total Protein 8.3 gm/dl (6.4-8.2) Albumin 3.8 gm/dl (3.4-5.0) Influenza Type A Antigen Neg for Influ A (NEG) Influenza Type B Antigen Neg for Influ B (NEG) Laboratory results as stated above per my review. Medications Administered Medications (Trade) Dose Ordered Sig/Bib Route Start Time Stop Time Status Last Admin Dose Admin Sodium Chloride 1,000 ml @ 999 mls/hr Q1H1M STAT IV 03/10/18 18:31 03/10/18 19:31 DC 03/10/18 18:57 999 MLS/HR Ketorolac Tromethamine (Toradol Inj) 30 mg NOW STAT IV 03/10/18 18:31 03/10/18 18:33 DC 03/10/18 18:58 30 MG ECG Per My Interpretation Indication: chest pain Rate (beats per minute): 79 Rhythm: normal sinus Findings: other (No ELISEO no PVCs) ED Course 1825: Previous medical records were reviewed. The patient was evaluated in room A12B. A complete history and physical examination was performed. 1830: Ordered Toradol 30 mg IV, Sodium Chloride 1000 mL @ 999 mL/hr IV. 1940: On reevaluation, the patient is resting in bed. I discussed the results and findings with the patient. She verbalized agreement of the treatment plan. The patient was discharged home. 1940: Levaquin 500mg PO. Medical Decision Differential diagnosis: Etiologies such as cardiac ischemia, aortic dissection, pulmonary embolism, pneumonia, pneumothorax, musculoskeletal, infections, pericarditis, myocarditis , esophageal rupture, gastrointestinal, as well as others were entertained. This is a 62-year-old female who presents to the ED with a chief complaint of headache, productive cough for yellow sputum, abdominal discomfort from her cough as well as some chest discomfort. The patient states that she has had the symptoms for about 3 days. She reports a history of a non-ST elevation PA. The patient feels like she might have the flu. She also reports a sore throat. Her blood pressure is 160/98. Vital signs are otherwise unremarkable. 12-lead EKG reveals a normal sinus rhythm at a rate of 79. Her exam was also unremarkable. She has some mild posterior oropharyngeal erythema. The lungs were clear. Abdomen is soft and nontender. She is in no distress. CBC and complete metabolic panel were unremarkable. Troponin was negative, flu swab was negative. Chest x-ray reveals early parenchymal infiltrates in the mid to lower bilateral airways. The patient was told the results of the test. She is felt to be stable for discharge. She was treated with IV fluids, IV Toradol and p.o. Levaquin. Medication Reconcilliation Current Medication List: was personally reviewed by me Blood Pressure Screening Patient's blood pressure: Elevated blood pressure Blood pressure disposition: Referred to PCP Impression Primary Impression: Pneumonia Scribe Attestation The scribe's documentation has been prepared under my direction and personally reviewed by me in its entirety. I confirm that the note above accurately reflects all work, treatment, procedures, and medical decision making performed by me. Departure Information Dispostion Home / Self-Care Prescriptions Levofloxacin (Levaquin) 500 Mg Tab 500 MG PO DAILY, #10 TAB Prov: Anish Jones D.O. 03/10/18 Referrals Freida Love DO (PCP) Patient Instructions ED Pneumonia Adult, My [facility] Additional Instructions Take Levaquin as prescribed. Follow-up with your doctor for further care and evaluation in 1-2 days. Return to the emergency department for worsening or new symptoms or any concerns. You have been examined and treated today on an emergency basis only. This is not a substitute for, or an effort to provide, complete comprehensive medical care. It is impossible to recognize and treat all injuries or illnesses in a single emergency department visit. It is therefore important that you follow up closely with your doctor. Call as soon as possible for an appointment.
--- NOTE | 2018-03-10 18:47 | DIAGNOSTIC IMAGING REPORT ---
CHEST ONE VIEW PORTABLE CLINICAL HISTORY: Evaluate Fever/Sepsis fever COMPARISON STUDY: 01/20/2014 FINDINGS: Interstitial prominence in the mid to lower lung regions bilaterally. Pulmonary apices are clear. The diaphragms are smooth. IMPRESSION: Early parenchymal interstitial infiltrates in the mid to lower lung regions bilaterally. The above report was generated using voice recognition software. It may contain grammatical, syntax or spelling errors. Electronically signed by: Nick Duke M.D. 03/10/2018 6:46 PM Dictated Date/Time: 03/10/2018 6:45 PM
[2018-03-10 19:07] LABS: BASO % 0.6 %; BASO ABS # 0.04 K/uL (0-0.2); EOS % 1.3 %; EOS ABS # 0.09 K/uL (0-0.5); HEMATOCRIT 42.3 % (37-47); HEMOGLOBIN 14.2 g/dL (12.0-16.0); IG# 0.01 K/uL (0.00-0.02); LYMPH % 26.4 %; LYMPH ABS # 1.85 K/uL (1.2-3.4); MEAN CORPUSCULAR HEMOGLOBIN 26.8 pg (25-34); MEAN CORPUSCULAR HGB CONC 33.6 g/dl (32-36); MEAN PLATELET VOLUME 9.3 fL (7.4-10.4); MONO % 11.8 %; MONO ABS # 0.83 K/uL (0.11-0.59); NEUT % 59.8 %; PLATELET COUNT 305 K/uL (130-400); RED CELL DISTRIBUTION WIDTH CV 14.4 % (11.5-14.5); RED CELL DISTRIBUTION WIDTH SD 41.5 fL (36.4-46.3); WHITE BLOOD COUNT 7.02 K/uL (4.8-10.8)
[2018-03-10 19:24] LABS: ALBUMIN 3.8 gm/dl (3.4-5.0); ALT/SGPT 25 U/L (12-78); AST/SGOT 21 U/L (15-37); BLOOD UREA NITROGEN 9 mg/dl (7-18); CALCIUM 8.9 mg/dl (8.5-10.1); CARBON DIOXIDE 28 mmol/L (21-32); CREATININE 0.86 mg/dl (0.60-1.20); GLUCOSE 71 mg/dl (70-99); POTASSIUM 3.6 mmol/L (3.5-5.1); SODIUM 137 mmol/L (136-145)
[2018-03-10 19:26] LABS: INFLUENZA B ANTIGEN Neg for Influ B (NEG)
[2018-03-10 19:28] LABS: ALKALINE PHOSPHATASE 108 U/L (45-117); TOTAL PROTEIN 8.3 gm/dl (6.4-8.2)
[2018-03-10] MEDS ORDERED: NRN600 PO (19:30)
[2018-03-10] MEDS ORDERED: MTR800 PO (19:30)
[2018-03-10] MEDS ORDERED: NRN800 PO (19:30)
[2018-03-10] MEDS ORDERED: ULT50 PO (19:30)
[2018-03-10] MEDS ORDERED: QUET1TAB37 PO (19:30)
[2018-03-10] MEDS ORDERED: LEVOFLOXACIN 250 MG TAB PO STA (19:39)
[2018-03-10] MEDS ORDERED: LEVO-366 PO (19:41)
[2018-03-10 20:07] VITALS: BP 161/98; PULSE 82; TEMP 37; O2SAT 96
== END 2018-03-10 20:09 | disposition home or self-care (01) ==
LOC: C.EDB 18:15 → C.EDA 20:09
DX: J18.9 Pneumonia, unspecified organism (principal); R03.0 Elevated blood-pressure reading, without diagnosis of hypertension; I25.2 Old myocardial infarction; J45.909 Unspecified asthma, uncomplicated; I25.10 Atherosclerotic heart disease of native coronary artery without angina pectoris; E78.5 Hyperlipidemia, unspecified; F32.9 Major depressive disorder, single episode, unspecified; F41.1 Generalized anxiety disorder; E66.01 Morbid (severe) obesity due to excess calories

== ENCOUNTER 2021-11-28 18:37 | Inpatient (IN) ==
[2021-11-28] MEDS ORDERED: ONDANSETRON INJ 2 MG/ML 2 ML VIAL IV STA ×3 (19:10→22:19)
[2021-11-28 19:33] LABS: Basophils # (auto) 0.01 K/uL (0-0.2); Basophils % (auto) 0.1 %; Hematocrit (blood only) 47.8 % (37-47); Hemoglobin 16.2 g/dL (12.0-16.0); Immature Granulocytes # (auto) 0.02 K/uL (0.00-0.02); Immature Granulocytes % (auto) 0.2 %; Lymphocytes # (auto) 1.37 K/uL (1.2-3.4); Lymphocytes % (auto) 10.8 %; Mean Corpuscular Hemoglobin 27.7 pg (25-34); Mean Corpuscular Hgb Conc 33.9 g/dL (32-36); Mean Corpuscular Volume 81.8 fL (80-100); Monocytes # (auto) 0.56 K/uL (0.11-0.59); Monocytes % (auto) 4.4 %; Neutrophils # (auto) 10.75 K/uL (1.4-6.5); Neutrophils % (auto) 84.5 %; Platelet Count 364 K/uL (130-400); RDW Coefficient of Variation 13.8 % (11.5-14.5); RDW Standard Deviation 41.4 fL (36.4-46.3); Red Blood Count 5.84 M/uL (4.2-5.4); White Blood Count 12.71 K/uL (4.8-10.8)
[2021-11-28 19:51] LABS: Albumin Level 4.1 gm/dl (3.4-5.0); BUN Creatinine Ratio 12.7 (10-20); Calcium 10.3 mg/dl (8.5-10.1); Creatinine Clr Calc Pharmacy 90.1 ml/min; Est GFR (African American) 102.6 ml/min; Est GFR (Non-African American) 88.5 ml/min; Potassium 3.4 mmol/L (3.5-5.1)
[2021-11-28 19:57] LABS: Albumin Globulin Ratio 0.9 (0.9-2); Bilirubin,Total 0.7 mg/dl (0.2-1); Globulin 4.4 gm/dl (2.5-4.0); Total Protein 8.5 gm/dl (6.4-8.2)
[2021-11-28] MEDS ORDERED: SODIUM CHLORIDE 0.9% 1000ML 1,000 ML IV ONE (20:24)
[2021-11-28] MEDS ORDERED: MoRPHine SULFATE 4 MG/ML 1 ML CARP\\VIAL IV STA (20:24)
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
[2021-11-28 20:46] LABS: Appearance Urine Clear (Clear); Bacteria Urine Automated Negative (Negative); Blood Urine 1+ (Negative); Color Urine Dark Yellow; Epithelial Cell Urine Auto >30 /lpf (0-5); Glucose Urine UA Negative (Negative); Ketones Urine 1+ (Negative); Leukocyte Esterase Urine Negative (Negative); Nitrite Urine Negative (Negative); Protein Urine 2+ (Negative); Specific Gravity Urine 1.024 (1.000-1.030); Urobilinogen Urine Negative (Negative); pH Urine 5.5 (4.5-7.5)
[2021-11-28 20:58] LABS: Bilirubin Urine 1+ (Negative)
[2021-11-28] MEDS ORDERED: OPTIRAY 320 100ml IV ONE (21:45)
--- NOTE | 2021-11-28 22:08 | CT Scan Report ---
CT abd pelvis IV con only CLINICAL HISTORY: diffuse abd pain N/V COMPARISON STUDY: 02/11/2021 CT DOSE: 990.64 mGy.cm TECHNIQUE: Standard CT of the Abdomen and Pelvis was performed with IV contrast. A dose lowering klarissa hnique was utilized adhering to the principles of ALARA. Contrast Volume: Optiray 320, 95 ml. The patient did not receive oral contrast. FINDINGS: Lung base: The lung bases are clear. There is mild coronary artery calcification. Abdominal cavity: There is no evidence for abdominal mass, adenopathy or ascites. Liver: There is homogeneous attenuation of the liver parenchyma. There is no evidence for enhancing m ass lesion. Spleen: There is homogeneous attenuation of the splenic parenchyma. There is no enhancing mass lesion . Pancreas: There is homogeneous attenuation of the pancreatic parenchyma. There is no evidence for mas s lesion or peripancreatic fluid collection. Gall Bladder: The gallbladder is well distended with no evidence for intraluminal calculi, wall thick ening or pericholecystic edema. Adrenal glands: The adrenal glands are normal in size and attenuation. There is no evidence for enhan cing mass lesion. Kidneys: There is homogeneous attenuation of the renal parenchyma bilaterally. There is no evidence f or renal calculus or hydronephrosis. There is no evidence for enhancing mass. Bowel: There is a small hiatal hernia. The bowel loops are normally placed within the abdomen and pel vis without evidence for dilatation or obstruction. However, there are multiple fluid-filled loops of small bowel which can be seen with ileus versus gastroenteritis. There are no inflammatory changes p resent. There is no evidence for free air. There is no evidence for an inflamed appendix. Bladder: The bladder is within normal limits with no evidence for focal mass, calculus or diverticulu m. : There is no evidence for pelvic mass or adenopathy. There is no evidence for pelvic ascites. Vasculature: There is no evidence for aneurysmal dilatation of the abdominal aorta. Atherosclerotic c alcification is present. Osseous structures: There is no acute osseous pathology. Degenerative changes are seen within the spi ne. IMPRESSION: 1. Fluid-filled loops of small bowel characteristic of an ileus versus gastroenteritis. 2. No evidence for bowel obstruction. 3. Small hiatal hernia. 4. Additional nonacute findings are delineated above. ACT 112: Negative or not required by law. Electronically signed by: Jeremías Hoyt M.D. 11/28/2021 10:07 PM
[2021-11-28] MEDS ORDERED: MoRPHine SULFATE 10 MG/ML CARP/VIAL IV STA (22:19)
[2021-11-28] MEDS ORDERED: POTASSIUM CHLORIDE / WTR 10 MEQ/100 ML PLCT IV STA (23:33)
[2021-11-29] MEDS ORDERED: tiZANidine HCL 4 MG TABLET PO PRN (00:48)
[2021-11-29] MEDS ORDERED: ACETAMINOPHEN 325 MG TAB PO PRN (00:48)
[2021-11-29] MEDS ORDERED: CYCLOBENZAPRINE HCL 5 MG TAB PO PRN (00:48)
[2021-11-29] MEDS ORDERED: ONDANSETRON INJ 2 MG/ML 2 ML VIAL IV PRN (00:48)
[2021-11-29] MEDS ORDERED: ALBUTEROL HFA 8 GM INHALER INH PRN (00:48)
[2021-11-29] MEDS: hydrALAZINE HCL 20 MG/ML VIAL IV PRN ×2 (01:51→14:57)
[2021-11-29] MEDS: D5W AND NSS 1,000 ML IV SCH ×3 (01:51→17:58)
[2021-11-29] MEDS: FAMOTIDINE 20 MG in SYRINGE 3 ML IV SCH ×3 (01:53→21:37)
[2021-11-29] MEDS: ENOXAPARIN INJ 40 MG/0.4 ML SYR SQ SCH ×3 (01:54→13:13)
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
[2021-11-29 06:14] LABS: Hematocrit (blood only) 45.1 % (37-47); Hemoglobin 15.1 g/dL (12.0-16.0); Immature Granulocytes # (auto) 0.05 K/uL (0.00-0.02); Immature Granulocytes % (auto) 0.3 %; Lymphocytes # (auto) 1.62 K/uL (1.2-3.4); Lymphocytes % (auto) 10.2 %; Mean Corpuscular Hemoglobin 27.5 pg (25-34); Mean Corpuscular Hgb Conc 33.5 g/dL (32-36); Mean Corpuscular Volume 82.1 fL (80-100); Mean Platelet Volume 10.4 fL (7.4-10.4); Monocytes # (auto) 1.19 K/uL (0.11-0.59); Monocytes % (auto) 7.5 %; Neutrophils # (auto) 13.04 K/uL (1.4-6.5); Platelet Count 309 K/uL (130-400); RDW Coefficient of Variation 13.9 % (11.5-14.5); Red Blood Count 5.49 M/uL (4.2-5.4)
[2021-11-29 06:43] LABS: BUN Creatinine Ratio 9.8 (10-20); Est GFR (African American) 93.1 ml/min; Est GFR (Non-African American) 80.3 ml/min; Magnesium 2.1 mg/dl (1.8-2.4); Potassium 3.3 mmol/L (3.5-5.1)
[2021-11-29] MEDS: HYDROmorphone INJ 0.5 MG/0.5 ML SYR IV PRN ×2 (08:17→19:35)
[2021-11-29] MEDS: POTASSIUM CHLORIDE / WTR 10 MEQ/100 ML PLCT IV SCH ×3 (08:29→12:30)
--- NOTE | 2021-11-29 10:04 | Ultrasound Report ---
US liver CLINICAL HISTORY: Abdominal pain. COMPARISON STUDY: CT of the abdomen and pelvis 11/28/2021. FINDINGS: No biliary ductal dilatation is present. The common bile duct measures 5 mm in caliber. Hep atic echogenicity is mildly increased. Liver is slightly heterogeneous. No hepatic lesions are identi fied. Gallbladder is normal. There are no gallstones. The pancreas is also within normal limits by so nography. There is no right hydronephrosis. IMPRESSION: 1. No gallstones or biliary ductal dilatation. 2. Probable hepatic steatosis. ACT 112: Negative or not required by law. Electronically signed by: Emiliano Porras M.D. 11/29/2021 10:03 AM
[2021-11-29] MEDS: TRIAMCINOLONE ACET 0.5% CR 15 GM TUBE TOP SCH ×2 (10:05→21:39)
[2021-11-29] MEDS: UMECLIDINIUM/VILANTEROL 62.5/25MCG 7 PUFFS/INHALER INH SCH (10:05)
[2021-11-29] MEDS: busPIRone 5 MG TAB PO SCH ×3 (10:05→21:38)
[2021-11-29] MEDS: FLUTICASONE PROPIONATE NA SPR 16 GM BTL SCH (10:05)
[2021-11-29] MEDS: CETIRIZINE HCL 10 MG TABLET PO SCH (10:05)
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
--- NOTE | 2021-11-29 12:22 | Gastrointestinal Consultation ---
Date of Consultation November 29, 2021 Assessment & Plan (1) Vomiting: (2) Nausea: (3) Leukocytosis: (4) Abnormal CT scan, colon: Symptoms and CT findings are worrisome for possible descending colon mass. Also considered are infectious enteritis, gastritis, duodenitis, esophagitis. Normal US, LFTs argue against a biliary issue. Will plan for Flex sig (prepping with a enema) and EGD tomorrow. Pt agrees to going forward with the procedures. Would keep NPO except sips of clear liquids until then. Appreciate primary hospitalists services replacement of fluids, electrolytes. Would hold Lovenox until after endoscopy. Supervising Physician Co-Signing Physician Notes Attg add: I interviewed and examined pt, reviewed chart and labs. Pt with abrupt onset of LLQ abd pain, n/v. CT shows transition point in LLQ. WBC = 16k. Rec empiric abx, unprepped flex sig tomorrow. History of Present Illness Reason for Consultation: Nausea, vomiting, ? enteritis Requesting Physician: Dr. Matt Attending Physician: Mary Wade MD History of Present Illness Ms. Daniel Nicolas is a 66 yr old female pt of Dr. Mata with a hx of CAD (Old [place] prior to 2013), chronic back pain, hyperlipidemia, anxiety presented to the ED yesterday for left mid abd pain, nausea and vomiting. She reports that the pain has been present intermittently for months; that she thought it was caused by a fall while working at [employer] about 4 months ago. Yesterday morning the pain was severe and she had nausea/vomiting was unable to retain anything that she drank and didn't try eating. She denies any unexplained weight loss, black or bloody BMs. On arrival, she had leukocytosis, CT initially read as enteritis but addendum today with collapsed distal colon suggesting a possible mid descending colon lesion. The pt is awake, alert, oriented in moderately severe left mid abd pain. She tells me that she has never undergone endoscopy previously (stating that she "didn't want anyone putting anything in her butt - that she has the Cologuard kit at home). She has continued with nausea and small volume liquid emesis since arrival. She has been afebrile and normotensive. Allergies Allergy/AdvReac Type Severity Reaction Status Date / Time No Known Allergies Allergy Unverified 11/30/21 09:34 Home Medications Medication Instructions Recorded Confirmed Type albuterol sulfate 90 mcg/actuation 2 puff INHALATION Q4 PRN 11/28/21 11/28/21 History aerosol inhaler buspirone 10 mg tablet 10 mg PO BID 11/28/21 11/28/21 History cetirizine 10 mg tablet (Zyrtec) 10 mg PO DAILY 11/28/21 11/28/21 History conjugated estrogens 0.625 mg/gram 1 applic TOPICAL HS 11/28/21 11/28/21 History vaginal cream (Premarin) cyclobenzaprine 5 mg tablet 5 mg PO TID PRN 11/28/21 11/28/21 History fluticasone propionate 50 2 spray INTRANASAL DAILY 11/28/21 11/28/21 History mcg/actuation nasal spray,suspension sulindac 200 mg tablet 200 mg PO BID 11/28/21 11/28/21 History tizanidine 4 mg tablet 4 mg PO Q6 PRN 11/28/21 11/28/21 History triamcinolone acetonide 0.5 % 1 applic TOPICAL BID 11/28/21 11/28/21 History topical ointment umeclidinium 62.5 mcg-vilanterol 1 ea INHALATION DAILY 11/28/21 11/28/21 History 25 mcg/actuation powdr for inhalation (Anoro Ellipta) Patient History Medical History HTN (hypertension) UTI (urinary tract infection) Social History Smoking Status: Current every day smoker Hx Alcohol Use: Yes Hx Substance Use: No Preferred Language: Scottish Communication Ability: Effective Marketing Planning Manager Required: No Beliefs That Will Affect Care: None Current Living Situation: Alone Other Information That Helps Us Care for You: No Feels Safe at Home: Yes Safety Concerns: Feels Safe At This Time Assistive Devices: None Review of Systems 2 Review of Systems: ROS: Gen: Denies weakness, fevers, weight loss Eyes: No eye redness, or pain, no recent vision changes Resp: No SOB, no cough Cardio: No palpitations/irregular beats, no chest pain GI: As per HPI, otherwise (-) : Denies pain on urination Skin: No jaundice, itching or new rashes A total of 12 systems were reviewed, all others (-). Physical Exam Constitutional: well developed, + ill appearing, + thin and cooperative Eyes: PERRL, conjunctivae normal, anicteric sclerae Respiratory: normal respiratory effort, lungs clear to auscultation Cardiovascular: RRR, no murmur, no edema Gastrointestinal (Abdomen): Percussion/Palpation: + abdomen tender (moderate left sided diffuse abd tenderness. No signs of acute abdomen.) and abdomen soft; no guarding and abdomen not rigid Skin: no rashes, warm and dry normal turgor Neurologic: PERRL, EOMI, accommodation nl, no face palsy, no dysarthria awake; not confused Psychiatric: A+Ox3, euthymic affect Results & Data ([facility]) Vital Signs (Past 12 Hours) Vital Signs Temp Pulse Pulse Resp BP Pulse Ox 11/29/21 07:20 37.1 C 82 16 166/73 H 96 11/29/21 02:38 82 168/81 H 11/29/21 00:50 37.3 C 106 H 24 182/105 H 100 11/29/21 00:36 87 20 183/83 H 98 11/29/21 00:17 90 20 177/101 H 98 Laboratory Results WBC 15.9, Hb 15, Hct 45, Plts 309, Na 137, K 3.3, Cl 105, CO2 26, BUN 8, Cr 0.78, glucose 143. Diagnostic Findings Liver US 11/29/21: 1. No gallstones or biliary ductal dilatation. 2. Probable hepatic steatosis. CTAP w IV 11/28/21: 1. Fluid-filled loops of small bowel characteristic of an ileus versus gastroenteritis. 2. No evidence for bowel obstruction. 3. Small hiatal hernia. 4. Additional nonacute findings are delineated above Upon further review, note is made of moderate dilatation of the ascending and transverse colon with mild dilatation of the descending colon. Pericolonic stranding is also noted. There is abrupt caliber change at the level of the distal descending colon with collapsed sigmoid colon and rectum. Although not identified by CT, an occult lesion within the distal descending colon cannot be excluded. Therefore, consideration for colonoscopy is recommended. Findings discussed with Hong Melendez at time of addendum. (1) Leukocytosis Leukocytosis type: unspecified Qualified Code(s): D72.829 - Elevated white blood cell count, unspecified (2) Vomiting Nausea presence: unspecified Vomiting type: unspecified Qualified Code(s): R11.10 - Vomiting, unspecified
[2021-11-29] MEDS ORDERED: PIPERACILL/TAZOBAC CONSULT ACTIVE PRN (12:34)
[2021-11-29] MEDS ORDERED: PIPERACILLIN/TAZOBACTAM 3.375 GM in DEXTROSE 5% 100 ML IV SCH (12:45)
[2021-11-29] MEDS ORDERED: PIPERACILLIN/TAZOBACTAM 4.5 GM in DEXTROSE 5% 100 ML IV STA (13:01)
[2021-11-29] MEDS ORDERED: PROMETHAZINE HCL 25 MG in SODIUM CHLORIDE 0.9% 50 ML IV ONE (17:40)
[2021-11-29] MEDS: PIPERACILLIN/TAZOBACTAM 4.5 GM in DEXTROSE 5% 100 ML IV SCH (18:36)
[2021-11-29 19:32] LABS: BUN Creatinine Ratio 9.2 (10-20); Calcium 8.7 mg/dl (8.5-10.1); Creatinine Clr Calc Pharmacy 100.8 ml/min; Est GFR (African American) 108.7 ml/min; Est GFR (Non-African American) 93.8 ml/min; Potassium 3.6 mmol/L (3.5-5.1)
[2021-11-29] MEDS: PREMARIN VAG CRM 14 APPLN/30 GM TUBE PV SCH (21:39)
[2021-11-30] MEDS: HYDROmorphone INJ 0.5 MG/0.5 ML SYR IV PRN ×3 (01:17→19:32)
[2021-11-30] MEDS: D5W AND NSS 1,000 ML IV SCH ×3 (01:21→19:32)
[2021-11-30] MEDS: PIPERACILLIN/TAZOBACTAM 4.5 GM in DEXTROSE 5% 100 ML IV SCH ×3 (02:02→19:48)
[2021-11-30 07:32] LABS: Hematocrit (blood only) 41.5 % (37-47); Mean Corpuscular Hemoglobin 27.8 pg (25-34); Mean Corpuscular Hgb Conc 33.7 g/dL (32-36); Mean Corpuscular Volume 82.5 fL (80-100); Mean Platelet Volume 11.1 fL (7.4-10.4); Platelet Count 316 K/uL (130-400); RDW Coefficient of Variation 13.9 % (11.5-14.5); RDW Standard Deviation 41.9 fL (36.4-46.3); Red Blood Count 5.03 M/uL (4.2-5.4); White Blood Count 16.67 K/uL (4.8-10.8)
[2021-11-30 07:57] LABS: Magnesium 1.7 mg/dl (1.7-2.4); Phosphorus 2.5 mg/dl (2.5-4.9)
--- NOTE | 2021-11-30 08:04 | Electrocardiogram Report ---
Test Reason : Blood Pressure : / mmHG Vent. Rate : 068 BPM Atrial Rate : 068 BPM P-R Int : 176 ms QRS Dur : 098 ms QT Int : 416 ms P-R-T Axes : 066 -07 026 degrees QTc Int : 442 ms Normal sinus rhythm Normal ECG When compared with ECG of 10-MAR-2018 18:27, No significant change was found Confirmed by William Rodriguez ([id number]) on 11/30/2021 8:04:26 AM Referred By: REFERRED SELF Confirmed By:William Rodriguez
[2021-11-30] MEDS: TRIAMCINOLONE ACET 0.5% CR 15 GM TUBE TOP SCH ×2 (08:12→21:16)
[2021-11-30] MEDS: FAMOTIDINE 20 MG in SYRINGE 3 ML IV SCH ×2 (08:56→21:16)
--- NOTE | 2021-11-30 09:36 | Anesthesiology Consultation ---
Date of Service November 30, 2021 Assessment & Plan (1) Encounter for pre-operative examination: Chart Review Chart Review: Acceptable Risk for Surgery and Patient NOT seen in Pre Admission Testing Consults Requested none History Surgery Operation Date: 11/30/21 17:00 Proposed Procedures p Flexible Sigmoidoscopy Dr Lauren Aguilar MD s Esophagogastroduodenoscopy Dr Disha Aguilar MD Height/Weight Height: 5 ft 3 in Weight: 103.9 kg Allergies Allergy/AdvReac Type Severity Reaction Status Date / Time No Known Allergies Allergy Unverified 11/30/21 09:34 Medications Home Medications Medication Instructions Recorded Confirmed Last Taken albuterol sulfate 90 mcg/actuation 2 puff INHALATION Q4 PRN 11/28/21 11/28/21 Unknown aerosol inhaler buspirone 10 mg tablet 10 mg PO BID 11/28/21 11/28/21 Unknown cetirizine 10 mg tablet (Zyrtec) 10 mg PO DAILY 11/28/21 11/28/21 Unknown conjugated estrogens 0.625 mg/gram 1 applic TOPICAL HS 11/28/21 11/28/21 Unknown vaginal cream (Premarin) cyclobenzaprine 5 mg tablet 5 mg PO TID PRN 11/28/21 11/28/21 Unknown fluticasone propionate 50 2 spray INTRANASAL DAILY 11/28/21 11/28/21 Unknown mcg/actuation nasal spray,suspension sulindac 200 mg tablet 200 mg PO BID 11/28/21 11/28/21 Unknown tizanidine 4 mg tablet 4 mg PO Q6 PRN 11/28/21 11/28/21 Unknown triamcinolone acetonide 0.5 % 1 applic TOPICAL BID 11/28/21 11/28/21 Unknown topical ointment umeclidinium 62.5 mcg-vilanterol 1 ea INHALATION DAILY 11/28/21 11/28/21 Unknown 25 mcg/actuation powdr for inhalation (Anoro Ellipta) Active Medications Generic Name Dose Route Start Last Admin Trade Name Freq PRN Reason Stop Dose Admin Buspirone HCl 10 mg 11/29/21 09:00 11/29/21 21:38 Buspirone 5 Mg Tab PO 12/29/21 08:59 Not Given BID SNEHA Cetirizine HCl 10 mg 11/29/21 09:00 11/29/21 10:05 Cetirizine Hcl 10 Mg Tablet PO 12/29/21 08:59 Not Given DAILY SNEHA Enoxaparin Sodium 40 mg 11/29/21 01:00 11/29/21 13:13 Enoxaparin Inj 40 Mg/0.4 Ml Syr SQ 12/29/21 00:59 Not Given BID SNEHA Estrogens Conjugated 1 appln 11/29/21 21:00 11/29/21 21:39 Premarin Vag Crm 14 Appln/30 Gm Tube PV 12/29/21 20:59 Not Given HS SNEHA Fluticasone Propionate 2 sprays 11/29/21 09:00 11/29/21 10:05 Fluticasone Propionate Na Spr 16 Gm Btl NA 12/29/21 08:59 Not Given DAILY SNEHA Hydralazine HCl 7.5 mg 11/29/21 01:05 11/29/21 14:57 Hydralazine Hcl 20 Mg/Ml Vial IV 12/29/21 01:04 7.5 mg Q6H PRN Administration Hypertension Hydromorphone HCl 0.5 mg 11/29/21 00:48 11/30/21 01:17 Hydromorphone Inj 0.5 Mg/0.5 Ml Syr IV 12/13/21 00:47 0.5 mg Q4H PRN Administration Pain Famotidine 20 mg/ Syringe 5 mls @ 2.5 mls/min 11/29/21 00:48 11/30/21 08:56 IV 12/29/21 00:47 2.5 mls/min BID SNEHA Administration Dextrose/Sodium Chloride 1,000 mls @ 125 mls/hr 11/29/21 00:48 11/30/21 09:11 D5w And Nss IV 12/29/21 00:47 0 mls/hr .Q8H SNEHA Infusion Piperacillin Sod/Tazobactam 120 mls @ 30 mls/hr 11/29/21 18:00 11/30/21 09:12 Sod 4.5 gm/ Dextrose IV 12/09/21 17:59 0 mls/hr Q8H SNEHA Infusion Protocol Ondansetron HCl 4 mg 11/29/21 00:48 11/29/21 13:27 Ondansetron Inj 2 Mg/Ml 2 Ml Vial IV 12/29/21 00:47 4 mg Q6H PRN Administration Nausea Triamcinolone Acetonide 1 appln 11/29/21 09:00 11/30/21 08:12 Triamcinolone Acet 0.5% Cr 15 Gm Tube TOP 12/29/21 08:59 Not Given BID SNEHA Umeclidinium/Vilanterol 1 puffs 11/29/21 09:00 11/29/21 10:05 Umeclidinium/Vilanterol 62.5/25mcg 7 Puffs/Inhaler INH 12/29/21 08:59 Not Given DAILY SNEHA Past Medical History Medical History HTN (hypertension) UTI (urinary tract infection) HLD CAD Hx Venous thrombosis Obesity Spinal stenosis Past Surgical History Exploratory abdominal laparotomy Left shoulder arthroscopy Past Anesthesia History No Hx of Anesthesia Complications History of PONV No Hx of PONV Social History Smoking Status: Current every day smoker tobacco type: cigarettes Hx Alcohol Use: Yes Hx Substance Use: No Physical Exam Vital Signs Last Vital Signs Temp 36.9 C 11/30/21 07:25 Pulse 71 11/30/21 07:25 Resp 16 11/30/21 07:25 BP 172/79 H 11/30/21 07:25 Pulse Ox 95 11/30/21 07:25 Testing Laboratory Results 11/30/21 06:24 11/29/21 18:33 Urine Color Dark Yellow 11/28/21 20:29 Urine Appearance Clear (Clear) 11/28/21 20: Urine pH 5.5 (4.5-7.5) 11/28/21 20:29 Ur Specific [place] 1.024 (1.000-1.030) 11/28/21 20:29 Urine Protein 2+ (Negative) H 11/28/21 20:29 Urine Glucose (UA) Negative (Negative) 11/28/21 20: Urine Ketones 1+ (Negative) H 11/28/21 20: Urine Nitrite Negative (Negative) 11/28/21 20:29 Ur Leukocyte Esterase Negative (Negative) 11/28/21 20:29 Urine WBC (Auto) 1-5 /hpf (0-5) 11/28/21 20:29 Urine RBC (Auto) 5-10 /hpf (0-4) H 11/28/21 20:29 U Hyaline Cast (Auto) 5-10 /lpf (0-5) H 11/28/21 20:29 U Epithel Cells (Auto) >30 /lpf (0-5) H 11/28/21 20:29 Urine Bacteria (Auto) Negative (Negative) 11/28/21 20:29
--- NOTE | 2021-11-30 09:59 | History & Physical Bridge Note ---
Date of Service November 30, 2021 History & Physical Bridge Note I have examined the patient, reviewed the History & Physical and in the interval since the performance of the History & Physical I have noted the following changes of clinical significance: no changes noted
[2021-11-30] MEDS ORDERED: PROPOFOL IV EMULSION 10 MG/ML 20 ML VIAL IV ONE (10:27)
[2021-11-30] MEDS ORDERED: LIDOCAINE 2% 2 ML VIAL/AMP(20MG/ML) INFIL ONE (10:27)
--- NOTE | 2021-11-30 10:50 | GI REPORT ---
Patient Name: Daniel Pabon Procedure Date: 11/30/2021 10:04 AM Date of : 1955 Admit Type: Inpatient Age: 66 Gender: Female Attending MD: Aydin Aguilar MD Procedure: Upper GI endoscopy Providers: Aydin Aguilar MD Referring MD: Freida Love Do Indications: Abdominal pain Medicines: See the Anesthesia note for documentation of the administered medications Complications: No immediate complications. Estimated Blood Loss: Estimated blood loss: none. Procedure: Pre-Anesthesia Assessment: - ASA Grade Assessment: III - A patient with severe systemic disease. After obtaining informed consent, the endoscope was passed under direct vision. Throughout the procedure, the patient's blood pressure, pulse, and oxygen saturations were monitored continuously. The Endoscope was introduced through the mouth, and advanced to the second part of duodenum. The upper GI endoscopy was accomplished without difficulty. The patient tolerated the procedure well. Findings: The Z-line was found 36 cm from the incisors. A 2 cm hiatal hernia was present. The gastroesophageal flap valve was visualized endoscopically and classified as Hill Grade III (minimal fold, loose to endoscope, hiatal hernia likely). The entire examined stomach was normal. Biopsies were taken with a cold forceps for histology. The examined duodenum was normal. Impression: - Z-line, 36 cm from the incisors. - 2 cm hiatal hernia. - Gastroesophageal flap valve classified as Hill Grade III (minimal fold, loose to endoscope, hiatal hernia likely). - Normal stomach. Biopsied. - Normal examined duodenum. Recommendation: - Discharge patient to floor. Nesha Mcmahon MD 11/30/2021 10:49:56 AM This report has been signed electronically. Note Initiated On: 11/30/2021 10:04 AM Number of Addenda: 0 I attest to the content of the Intraoperative Record and orders documented therein, exceptions below {[id number]}
[2021-11-30] MEDS: FLUTICASONE PROPIONATE NA SPR 16 GM BTL SCH (11:01)
[2021-11-30] MEDS: UMECLIDINIUM/VILANTEROL 62.5/25MCG 7 PUFFS/INHALER INH SCH (11:01)
[2021-11-30] MEDS: busPIRone 5 MG TAB PO SCH ×2 (11:01→21:16)
[2021-11-30] MEDS: CETIRIZINE HCL 10 MG TABLET PO SCH (11:01)
[2021-11-30] MEDS: hydrALAZINE HCL 20 MG/ML VIAL IV PRN (11:58)
[2021-11-30] MEDS ORDERED: LACTATED RINGER'S 1,000 ML IV SCH (12:45)
--- NOTE | 2021-11-30 13:23 | Anesthesiology Progress Note ---
Date of Service November 30, 2021 Anesthesia Post Procedure Vital Signs Vital Signs: Temp Pulse Pulse Resp BP BP Pulse Ox 11/30/21 12:20 36.8 C 63 18 163/85 H 100 11/30/21 11:52 37.0 C 69 16 173/97 H 99 11/30/21 11:02 62 18 174/80 H 100 11/30/21 10:47 62 16 138/60 100 11/30/21 10:32 79 16 137/102 H 100 11/30/21 09:37 36.2 C L 68 18 137/77 97 11/30/21 07:25 36.9 C 71 16 172/79 H 95 11/30/21 02:12 70 143/83 H 11/29/21 21:47 37.3 C 76 18 197/94 H 92 11/29/21 14:52 37.5 C 78 16 194/94 H 94 Pain Intensity Bilateral Abdomen: Pain Intensity: 10 Transfer of Care Handoff Completed per policy Notes Mental Status: alert / awake / arousable and participated in evaluation Nausea / Vomiting: adequately controlled Pain: adequately controlled Airway Patency, RR, SpO2: stable & adequate BP & HR: stable & adequate Hydration State: stable & adequate Anesthetic Complications: no major complications apparent and Pt Satisfied with anesthetic care
--- NOTE | 2021-11-30 15:17 | Hospitalist Progress Note ---
Date of Service November 30, 2021 Assessment & Plan (1) Vomiting: (2) Nausea: Plan: A 66-year-old female with past medical history significant for hyperlipidemia, prediabetes, CAD, history of venous thrombosis, obesity, history of carpal tunnel syndrome, lumbago, spinal stenosis of the thoracic region, tobacco abuse disorder, who lives alone, presented 11/29 with nausea, vomiting associated with abdominal pain that started on the day of arrival. Patient is being managed for the followin. Nausea, vomiting, gastroenteritis versus ileus: Patient presented with nausea and vomiting associated with belly pain started in the morning of the day of her arrival. Admitting CTAP: Fluid-filled loops of small bowel characteristics of ileus versus GE, no evidence of bowel obstruction. Admitting liver ultrasound: Probable hepatic asteatosis, no other acute findings. Admitting WBC elevated, WBC uptrending. Patient afebrile Status post EGD 11/30: GE flap valve Hill grade 3, stomach normal, duodenal normal. Biopsies were taken with cold forceps from the stomach for histology. Patient n.p.o. per GI. N.p.o. except sips of clear liquids per GI. Patient on Zosyn per GI. Continue n.p.o., IV fluids, IV antiemetics, IV Dilaudid p.r.n. iv Pepcid. 2. Prediabetes: Will follow HbA1c levels. Blood glucose under control. 3. History of coronary artery disease as per records. 4. History of spinal stenosis and lumbago: Continue her home medications. Hold Sulindac. 5. Obesity: Counselled 6. Deep venous thrombosis prophylaxis: Lovenox on hold for possible procedures. Resume per GI. Admission and Anticipated Discharge Date Admission Date: November 30, 2021 Subjective Patient was lying in bed, just arrived [place] [facility] [place], reports feeling hungry and wants to eat, patient to remain n.p.o. per GI recommendation, no new acute events overnight. On room air and NAD. Patient is still having belly pain. Patient denies fever/chills/chest pain/palpitations/other review of symptoms. Patient reports improvement in her nausea and vomiting after coming to the hospital. Physical Exam Physical Exam: GENERAL: Alert and oriented x3. NAD, on RA. Morbidly obese. HEENT: No pallor, no icterus. Pupils equal, round and reactive to light. Oral mucosa moist. NECK: No JVD, no neck masses. HEART: S1 and S2 heard. Regular rate and rhythm. No murmur, no gallop. RESPIRATORY SYSTEM: Normal AP diameter. No accessory muscle use. No wheezing, no crackles. ABDOMEN: Soft, bowel sounds present, nontender, no distention. Healed midline surgical scar. CENTRAL NERVOUS SYSTEM: No facial droop. Speech is clear. Obeys simple commands. Moves extremities. EXTREMITIES: No edema, no erythema seen. Results & Data Results & Data ([facility]) Vital Signs (Past 12 Hours) Vital Signs Temp Pulse Resp BP BP Pulse Ox 11/30/21 14:32 37.1 C 60 18 164/70 H 100 11/30/21 13:25 56 L 18 159/94 H 99 11/30/21 12:20 36.8 C 63 18 163/85 H 100 11/30/21 11:52 37.0 C 69 16 173/97 H 99 11/30/21 11:02 62 18 174/80 H 100 11/30/21 10:47 62 16 138/60 100 11/30/21 10:32 79 16 137/102 H 100 11/30/21 09:37 36.2 C L 68 18 137/77 97 11/30/21 07:25 36.9 C 71 16 172/79 H 95 (1) Vomiting Nausea presence: unspecified Vomiting type: unspecified Qualified Code(s): R11.10 - Vomiting, unspecified
[2021-11-30] MEDS: PREMARIN VAG CRM 14 APPLN/30 GM TUBE PV SCH (21:12)
[2021-12-01] MEDS: D5W AND NSS 1,000 ML IV SCH ×2 (03:20→11:54)
[2021-12-01] MEDS: PIPERACILLIN/TAZOBACTAM 4.5 GM in DEXTROSE 5% 100 ML IV SCH ×3 (03:22→19:51)
[2021-12-01 07:09] LABS: Hematocrit (blood only) 41.4 % (37-47); Hemoglobin 13.8 g/dL (12.0-16.0); Mean Corpuscular Hemoglobin 27.7 pg (25-34); Mean Corpuscular Hgb Conc 33.3 g/dL (32-36); Mean Corpuscular Volume 83.1 fL (80-100); Mean Platelet Volume 10.2 fL (7.4-10.4); Platelet Count 307 K/uL (130-400); RDW Coefficient of Variation 13.8 % (11.5-14.5); RDW Standard Deviation 41.6 fL (36.4-46.3); Red Blood Count 4.98 M/uL (4.2-5.4)
[2021-12-01 07:32] LABS: Calcium 9.1 mg/dl (8.5-10.1); Creatinine Clr Calc Pharmacy 97.8 ml/min; Est GFR (African American) 107.7 ml/min; Est GFR (Non-African American) 92.9 ml/min; Magnesium 1.9 mg/dl (1.7-2.4); Phosphorus 2.9 mg/dl (2.5-4.9); Potassium 3.5 mmol/L (3.5-5.1)
[2021-12-01] MEDS: busPIRone 5 MG TAB PO SCH ×2 (08:52→19:55)
[2021-12-01] MEDS: FLUTICASONE PROPIONATE NA SPR 16 GM BTL SCH ×2 (08:52→08:56)
[2021-12-01] MEDS: CETIRIZINE HCL 10 MG TABLET PO SCH (08:52)
[2021-12-01] MEDS: TRIAMCINOLONE ACET 0.5% CR 15 GM TUBE TOP SCH ×2 (08:53→19:57)
[2021-12-01] MEDS: UMECLIDINIUM/VILANTEROL 62.5/25MCG 7 PUFFS/INHALER INH SCH (08:53)
[2021-12-01 09:35] LABS: Estimated Average Glucose 117 mg/dl; Hemoglobin A1C 5.7 % (4.5-5.6)
[2021-12-01] MEDS: FAMOTIDINE 20 MG in SYRINGE 3 ML IV SCH ×2 (09:42→20:01)
--- NOTE | 2021-12-01 13:07 | Hospitalist Progress Note ---
Date of Service December 01, 2021 Assessment & Plan (1) Ischemic colitis: Plan: s/p EGD and flex sigmoidoscopy - [facility] GI group following - Diet has been advanced to clear liquids this morning, tolerating, advance per GI - Empirically on Zosyn, can transition to Augmentin to complete course as outpatient - Continue pain control, antiemetics - Now tolerating oral intake, can cap fluids (2) Gastroenteritis: Plan: - IVF, antiemetics, H2 edith on board - Seems that this has resolved, no longer w/ n/v (3) Leukocytosis: Plan: - Resolved w/ initiation of abx (4) HTN (hypertension): Plan: - Not on any antihypertensive medications - [facility] hospitalist team ordered very low dose Hydralazine to be provided IV - Will initiate pt Lisinopril 10mg daily and monitor response - Although CCB are typically the first line of antihypertensives to be used in AA population +/- thiazide diuretics, this is not ideal with a baseline HR in the 60s (5) Prediabetes: Plan: - Hemoglobin a1c 5.7% - When able to advance diet, will advance to diabetic/carb consistent diet (6) CAD (coronary atherosclerotic disease): Plan: - No chest pain - She doesn't appear to be on any medications for this, no antiplatelet agents, BB, or DIANA (7) Spinal stenosis: Plan: - Apparently takes Sulindac at home which is on hold - Continue muscle relaxers as prescribed (8) Morbid obesity with BMI of 40.0-44.9, adult: Plan: - Counseled, recommend dietary modification and exercise to promote weight loss - This would also help prevent progression of her pre DM to T2DM (9) Anxiety: Plan: - Continue BuSpar Plan: Appreciate GI assistance in managing this patient. Cap fluids as she is tolerating oral intake of clear liquids. Advance diet as GI recommends. Will initiate Lisinopril for BP control. f/u labs in AM. D/c planning. Admission and Anticipated Discharge Date Admission Date: November 30, 2021 Subjective Pt was seen on daily rounds this morning. She is resting comfortably in bed and offers no complaints/concerns at present. She was hospitalized on 11/29 with c/o abd pain associated with n/v. Apparently pt was admitted initially as an unass igned pt under [facility] hospitalist service, however, was transferred to [facility] hospitalist service today. She underwent EGD and flex sigmoidoscopy and per the NEWSPAPER CARRIER from GI, she was found to have ischemic colitis. Pt was kept NPO on 11/30. Early this morning, pt approached the nurse's station demanding something to eat. Upon d/w GI, pt's diet was advanced to clear liquids. Pt tolerated the clears well w/o n/v. She has had two BMs so far this morning. No BRB or melena. She reports only minimal pain in the LLQ. No fever, chills, chest pain, or dyspnea. Review of Systems Review of Systems: CONSTITUTIONAL: Denies weight loss/gain, fever and chills, fatigue, malaise, generalized weakness. HEENT: Denies changes in vision and hearing. RESPIRATORY: Denies SOB, cough, wheezing. CV: Denies palpitations, CP, lower extremity edema, orthopnea, PND. GI: +minimal LLQ pain. Denies nausea, vomiting and diarrhea. : Denies dysuria and urinary frequency, urgency, hesitancy. MUSCULOSKELETAL: Denies myalgia and joint pain. SKIN: Denies rash and pruritus. NEUROLOGICAL: Denies headache, syncope, focal weakness, numbness, tingling. PSYCHIATRIC: Denies recent changes in mood. Denies anxiety and depression. Physical Exam Physical Exam: GENERAL: 66 yo obese BF. Pleasant, cooperative. NAD. LUNGS: Clear to auscultation bilaterally. No accessory muscle use. No W/R/R. CARDIOVASCULAR: Regular rate and rhythm. No M/G/R. No JVD. ABDOMEN: Soft, minimal TTP in LLQ. No rebound tenderness or guarding. Normoactive BS x 4 quad. EXTREMITIES: No edema. Non-tender. Peripheral pulses +2/4. NEUROLOGIC: A&O x3. PSYCHIATRIC: Appropriate mood and affect. SKIN: Warm, dry, intact. No rashes or lesions. Results & Data Results & Data ([facility]) Vital Signs (Past 12 Hours) Vital Signs Temp Pulse Resp BP Pulse Ox 12/01/21 07:41 36.8 C 61 16 164/71 H 95 12/01/21 04:00 37.1 C 52 L 16 153/107 H 94 Laboratory Results 12/01/21 06:47 12/01/21 06:47 PG Care Time/CCT Total # of Minutes Spent Total Time Spent with Patient: Total time spent is greater than 50% in coordination of care (as documented) at patient's floor/unit and/or counseling patient: Coding Level of Care Code 63122 Subseq Hosp Care Lvl 3 Diagnoses Ischemic colitis K55.9 Leukocytosis D72.829 Leukocytosis type: unspecified Prediabetes R73.03 CAD (coronary atherosclerotic disease) I25.10 Spinal stenosis M48.00 Morbid obesity with BMI of 40.0-44.9, adult E66.01; Z68.41 Gastroenteritis K52.9 Anxiety F41.9 HTN (hypertension) I10 (1) Leukocytosis Leukocytosis type: unspecified Qualified Code(s): D72.829 - Elevated white blood cell count, unspecified
--- NOTE | 2021-12-01 14:34 | Gastroenterology Progress Note ---
Date of Service December 01, 2021 Assessment & Plan (1) Vomiting: (2) Nausea: (3) Leukocytosis: (4) Abnormal CT scan, colon: (5) Acute ischemic colitis: Plan: w/o evidence of necrosis or perforation. Etiology likely transient vessel spasm, possible dehydration. No suggestion of chronic colitis on endoscopy. Clinically improving. Plan: Will advance to full liquids today and if continues to do well, then soft foods tomorrow. Continue broad spectrum antibiotics a total of 10 days. Admission and Anticipated Discharge Date Admission Date: November 30, 2021 Supervising Physician Co-Signing Physician Notes Attg add: I interviewed and examined pt, reviewed chart and labs. Pt with no abd pain, kevin PO. No abd tenderness on exam. Labs show normal WBC. Plan to adv diet to full liquids today, then low res tomorrow. D/c tomorrow on oral ci pro /Flagyl to complete 10 day course. Cscopy in 6-8 weeks. Please call with questions. Subjective 66 female admitted 11/29 for abd pain, n/v. Colonoscopy (ordered as flex sig but Dr. Aguilar was able to complete unprepped colonoscopy) yesterday with suggestion of ischemic colitis in the descending colon. Note is pending. Pt reports no N/V or pain and that she passed two BMs today (soft, brown). She is afebrile, mildly hypertensive otherwise hemodynamically normal and leukocytosis has resolved on Zosyn. Tolertating clear liquids and asking for more food. Review of Systems Review of Systems: ROS: Gen: Denies weakness, fevers, weight loss Eyes: No eye redness, or pain, no recent vision changes Resp: No SOB, no cough Cardio: No palpitations/irregular beats, no chest pain GI: As per HPI, otherwise (-) : Denies pain on urination Skin: No jaundice, itching or new rashes A total of 12 systems were reviewed, all others (-). Results & Data ([facility]) Vital Signs (Past 12 Hours) Vital Signs Temp Pulse Resp BP Pulse Ox 12/01/21 07:41 36.8 C 61 16 164/71 H 95 12/01/21 04:00 37.1 C 52 L 16 153/107 H 94 Laboratory Results WBC 10, Hb 13.8, Hct 41.4, Plts 307, Na 139, K 3.5, Cl 107, CO2 25, BUN 4, Cr 0.67, glucose 119. Diagnostic Findings Liver US 11/29/21: 1. No gallstones or biliary ductal dilatation. 2. Probable hepatic steatosis. CTAP w IV contrast 11/28/21: Addendum: Upon further review, note is made of moderate dilatation of the ascending and transverse colon with mild dilatation of the descending colon. Pericolonic stranding is also noted. There is abrupt caliber change at the level of the distal descending colon with collapsed sigmoid colon and rectum. Although not identified by CT, an occult lesion within the distal descending colon cannot be excluded. Therefore, consideration for colonoscopy is recommended. IMPRESSION: 1. Fluid-filled loops of small bowel characteristic of an ileus versus gastroenteritis. 2. No evidence for bowel obstruction. 3. Small hiatal hernia. 4. Additional nonacute findings are delineated above. (1) Leukocytosis Leukocytosis type: unspecified Qualified Code(s): D72.829 - Elevated white blood cell count, unspecified (2) Vomiting Nausea presence: unspecified Vomiting type: unspecified Qualified Code(s): R11.10 - Vomiting, unspecified
[2021-12-01] MEDS: lisinopril 10 MG TAB PO SCH (16:02)
[2021-12-01] MEDS: HYDROmorphone INJ 0.5 MG/0.5 ML SYR IV PRN ×2 (16:27→20:06)
[2021-12-01] MEDS: PREMARIN VAG CRM 14 APPLN/30 GM TUBE PV SCH (19:56)
[2021-12-02] MEDS: PIPERACILLIN/TAZOBACTAM 4.5 GM in DEXTROSE 5% 100 ML IV SCH ×2 (04:19→11:49)
[2021-12-02] MEDS: UMECLIDINIUM/VILANTEROL 62.5/25MCG 7 PUFFS/INHALER INH SCH (08:03)
[2021-12-02] MEDS: lisinopril 10 MG TAB PO SCH (08:03)
[2021-12-02] MEDS: CETIRIZINE HCL 10 MG TABLET PO SCH (08:03)
[2021-12-02] MEDS: TRIAMCINOLONE ACET 0.5% CR 15 GM TUBE TOP SCH (08:04)
[2021-12-02] MEDS: FLUTICASONE PROPIONATE NA SPR 16 GM BTL SCH (08:05)
[2021-12-02 08:22] LABS: Basophils # (auto) 0.04 K/uL (0-0.2); Basophils % (auto) 0.4 %; Eosinophils # (auto) 0.21 K/uL (0-0.5); Eosinophils % (auto) 2.3 %; Hematocrit (blood only) 40.2 % (37-47); Hemoglobin 13.2 g/dL (12.0-16.0); Immature Granulocytes # (auto) 0.01 K/uL (0.00-0.02); Immature Granulocytes % (auto) 0.1 %; Lymphocytes # (auto) 4.16 K/uL (1.2-3.4); Mean Corpuscular Hemoglobin 27.2 pg (25-34); Mean Corpuscular Hgb Conc 32.8 g/dL (32-36); Mean Corpuscular Volume 82.7 fL (80-100); Mean Platelet Volume 10.4 fL (7.4-10.4); Monocytes # (auto) 0.89 K/uL (0.11-0.59); Monocytes % (auto) 9.8 %; Neutrophils # (auto) 3.74 K/uL (1.4-6.5); Neutrophils % (auto) 41.4 %; Platelet Count 284 K/uL (130-400); RDW Coefficient of Variation 13.8 % (11.5-14.5); RDW Standard Deviation 41.5 fL (36.4-46.3); Red Blood Count 4.86 M/uL (4.2-5.4); White Blood Count 9.05 K/uL (4.8-10.8)
[2021-12-02 08:41] LABS: BUN Creatinine Ratio 6.4 (10-20); Calcium 8.6 mg/dl (8.5-10.1); Est GFR (African American) 93.1 ml/min; Est GFR (Non-African American) 80.3 ml/min; Potassium 3.1 mmol/L (3.5-5.1)
[2021-12-02] MEDS ORDERED: POTASSIUM CHLORIDE CRTAB 20 MEQ TABCR PO STA (08:48)
[2021-12-02] MEDS: FAMOTIDINE 20 MG in SYRINGE 3 ML IV SCH (08:57)
[2021-12-02] MEDS: busPIRone 5 MG TAB PO SCH (09:24)
[2021-12-02] MEDS ORDERED: lisinopril 10 MG TAB PO STA (12:17)
--- NOTE | 2021-12-02 12:42 | Gastroenterology Progress Note ---
Date of Service December 02, 2021 Assessment & Plan (1) Acute ischemic colitis: Plan: w/o evidence of necrosis or perforation. Etiology likely transient vessel spasm, possible dehydration. No suggestion of chronic colitis on endoscopy. Clinically improving. Plan: Low fiber diet, continue broad-spectrum antibiotics for total of 10 days - can switch to cipro/flagyl or Augmentin. No GI contraindication to discharge. GI will sign off. She does need a more thorough colonoscopy for screening for colon cancer as well as verifying healing of the ischemic colitis in approximately 6 weeks. Our office will call her to arrange that. Admission and Anticipated Discharge Date Admission Date: November 30, 2021 Supervising Physician Co-Signing Physician Notes Attg dd: I interviewed and examined pt, reviewed chart and labs. Pt with mild abdominal pain, passing loose stool, eating with good appetite. On exam, she appears comfortable, mild abd tenderness in LLQ. OK for d/c - recommendations as above. Subjective 66 female admitted 11/29 for abd pain, n/v. Colonoscopy (ordered as flex sig but Dr. Aguilar was able to complete unprepped colonoscopy) 11/30 with suggestion of ischemic colitis in the descending colon. Note is pending. Pt reports no N/V or pain and that she passing formed soft brown bowel movements. Tolerating full liquid diet without any pain. Leukocytosis has resolved on Zosyn. Feeling well and able to walk around in her room. Excited about anticipated discharge to home today Review of Systems Review of Systems: ROS: Gen: Denies weakness, fevers, weight loss Eyes: No eye redness, or pain, no recent vision changes Resp: No SOB, no cough Cardio: No palpitations/irregular beats, no chest pain GI: No abdominal pain, no nausea/vomiting : Denies pain on urination Skin: No jaundice, itching or new rashes Physical Exam 2 Constitutional: well developed, + ill appearing, + thin and cooperative Eyes: PERRL, conjunctivae normal, anicteric sclerae ENMT: external ear and nose normal, oropharynx normal Neck: trachea midline, no thyromegaly Respiratory: normal respiratory effort, lungs clear to auscultation Cardiovascular: RRR, no murmur, no edema Gastrointestinal (Abdomen): normal bowel sounds, soft, nontender, no hepatosplenomegaly Musculoskeletal: no cyanosis or clubbing, extremities motor strength 5/5 Skin: no rashes, warm and dry normal turgor and + pallor Neurologic: PERRL, EOMI, accommodation nl, no face palsy, no dysarthria awake; not confused Psychiatric: A+Ox3, euthymic affect Results & Data ([place]) Vital Signs (Past 12 Hours) Vital Signs Temp Pulse Resp BP BP Pulse Ox 12/02/21 10:59 52 L 168/73 H 96 12/02/21 07:16 37.5 C 58 L 18 186/77 H 98 Laboratory Results WBC 9.05, H P13.2, HCT 40, PLT S2 184, NA 139, K3.1, CL 107, CO2 25, BUN 5, CR 0.78, glucose 100. Diagnostic Findings CTAP with IV contrast 11/28/21:. Addendum by Dr. Porras: Upon further review, note is made of moderate dilatation of the ascending and transverse colon with mild dilatation of the descending colon. Pericolonic stranding is also noted. There is abrupt caliber change at the level of the distal descending colon with collapsed sigmoid colon and rectum. Although not identified by CT, an occult lesion within the distal descending colon cannot be excluded. Therefore, consideration for colonoscopy is recommended. 1 Fluid-filled loops of small bowel characteristic of an ileus versus gastroenteritis. 2. No evidence for bowel obstruction. 3. Small hiatal hernia. 4. Additional nonacute findings are delineated above.
--- NOTE | 2021-12-02 13:11 | Discharge Summary ---
Date of Service December 02, 2021 Admission HPI Per Admitting Provider A 66-year-old female with past medical history significant for hyperlipidemia, prediabetes, CAD, history of venous thrombosis, obesity, history of carpal tunnel syndrome, lumbago, spinal stenosis of the thoracic region, tobacco abuse disorder, who lives alone, who presents with nausea, vomiting, started today morning. Several episodes of nausea, vomiting, and severe abdominal pain. She had normal bowel movements in the morning. She has chronic cough and runny nose from allergies. No headache, no blurred visions, no earache, no sore throat, no chest pain, no shortness of breath. Normal bladder movements. Currently, resting comfortably and hemodynamically stable. Complains of abdominal pain. Patient hospitalized under [facility] hospitalist service for further evaluation and care. Due to insurance issues, pt was transferred to [facility] hospitalist service on 12/01. Principal Diagnosis 1. Acute Ischemic Colitis (Descending colon) 2. Gastroenteritis--resolved 3. Leukocytosis--resolved 4. Uncontrolled Hypertension Discharge Exam GENERAL: 66 yo obese BF. Pleasant, cooperative. NAD. LUNGS: Clear to auscultation bilaterally. No accessory muscle use. No W/R/R. CARDIOVASCULAR: Regular rate and rhythm. No M/G/R. No JVD. ABDOMEN: Soft, minimal TTP in LLQ. No rebound tenderness or guarding. Normoactive BS x 4 quad. EXTREMITIES: No edema. Non-tender. Peripheral pulses +2/4. NEUROLOGIC: A&O x3. PSYCHIATRIC: Appropriate mood and affect. SKIN: Warm, dry, intact. No rashes or lesions. Discharge Data Allergies Allergy/AdvReac Type Severity Reaction Status Date / Time No Known Allergies Allergy Unverified 11/30/21 09:34 Procedures Performed Operation Date: 11/30/21 17:00 Actual Procedures p EGD Biopsy Cytology - Aydin Aguilar MD s Colonoscopy Biopsy Cytology - Aydin Aguilar MD Findings c/w ischemic colitis in descending colon Ordered Studies Abdomen/Pelvis CT 11/28/21 20:24 CT abd pelvis IV con only CLINICAL HISTORY: diffuse abd pain N/V COMPARISON STUDY: 02/11/2021 CT DOSE: 990.64 mGy.cm TECHNIQUE: Standard CT of the Abdomen and Pelvis was performed with IV contrast. A dose lowering technique was utilized adhering to the principles of ALARA. Contrast Volume: Optiray 320, 95 ml. The patient did not receive oral contrast. FINDINGS: Lung base: The lung bases are clear. There is mild coronary artery calcification. Abdominal cavity: There is no evidence for abdominal mass, adenopathy or asci malik. Liver: There is homogeneous attenuation of the liver parenchyma. There is no evidence for enhancing mass lesion. Spleen: There is homogeneous attenuation of the splenic parenchyma. There is no enhancing mass lesion. Pancreas: There is homogeneous attenuation of the pancreatic parenchyma. There is no evidence for mass lesion or peripancreatic fluid collection. Gall Bladder: The gallbladder is well distended with no evidence for intraluminal calculi, wall thickening or pericholecystic edema. Adrenal glands: The adrenal glands are normal in size and attenuation. There is no evidence for enhancing mass lesion. Kidneys: There is homogeneous attenuation of the renal parenchyma bilaterally. There is no evidence for renal calculus or hydronephrosis. There is no evidence for enhancing mass. Bowel: There is a small hiatal hernia. The bowel loops are normally placed within the abdomen and pelvis without evidence for dilatation or obstruction. However, there are multiple fluid-filled loops of small bowel which can be seen with ileus versus gastroenteritis. There are no inflammatory changes present. There is no evidence for free air. There is no evidence for an inflamed appe ndix. Bladder: The bladder is within normal limits with no evidence for focal mass, calculus or diverticulum. : There is no evidence for pelvic mass or adenopathy. There is no evidence for pelvic ascites. Vasculature: There is no evidence for aneurysmal dilatation of the abdominal aorta. Atherosclerotic calcification is present. Osseous structures: There is no acute osseous pathology. Degenerative changes are seen within the spine. IMPRESSION: 1. Fluid-filled loops of small bowel characteristic of an ileus versus gastroenteritis. 2. No evidence for bowel obstruction. 3. Small hiatal hernia. 4. Additional nonacute findings are delineated above. ACT 112: Negative or not required by law. Electronically signed by: Jeremías Hoyt M.D. 11/28/2021 10:07 PM Liver Ultrasound 11/29/21 08:28 US liver CLINICAL HISTORY: Abdominal pain. COMPARISON STUDY: CT of the abdomen and pelvis 11/28/2021. FINDINGS: No biliary ductal dilatation is present. The common bile duct measures 5 mm in caliber. Hepatic echogenicity is mildly increased. Liver is slightly heterogeneous. No hepatic lesions are identified. Gallbladder is normal. There are no gallstones. The pancreas is also within normal limits by sonography. There is no right hydronephrosis. IMPRESSION: 1. No gallstones or biliary ductal dilatation. 2. Probable hepatic steatosis. ACT 112: Negative or not required by law. Electronically signed by: Emiliano Porras M.D. 11/29/2021 10:03 AM Hospital Course (1) Ischemic colitis: s/p EGD and flex sigmoidoscopy - [facility] GI group following - Diet has been advanced to clear liquids 12/01, advanced to low residue diet this morning which she tolerated - Empirically on Zosyn since 11/29, per GI, transition to Cipro/Flagyl to complete total of 10 days as outpatient - Continue pain control, antiemetics - Now tolerating oral intake, can cap fluids (2) Gastroenteritis: - IVF, antiemetics, H2 edith on board - Seems that this has resolved, no longer w/ n/v (3) Leukocytosis: - Resolved w/ initiation of abx (4) HTN (hypertension): Uncontrolled - Not on any antihypertensive medications - [facility] hospitalist team ordered very low dose Hydralazine to be provided IV - Although CCB are typically the first line of antihypertensives to be used in AA population +/- thiazide diuretics, this is not ideal with a baseline HR in the 60s - Started on Lisinopril 10mg daily, first dose yesterday with fair response, this morning after medications her pressure is 168/77, - Increase Lisinopril to 20mg daily, given an additional 10mg PO x1 now, repeat BP in 1 hour - Had lengthy discussion regarding importance of dietary compliance, avoiding excessive salt and caffeine intake - Should purchase a BP monitor and check at home, keep log - Follow up with PCP next week for recheck of BP since starting Lisinopril (5) Hypokalemia: - Replacement ordered with KCl 40meq PO x1 now (6) Prediabetes: - Hemoglobin a1c 5.7% - When able to advance diet, will advance to diabetic/carb consistent diet (7) CAD (coronary atherosclerotic disease): - No chest pain - She doesn't appear to be on any medications for this, no antiplatelet agents, BB, or DIANA (8) Spinal stenosis: - Apparently takes Sulindac at home which is on hold - Continue muscle relaxers as prescribed (9) Morbid obesity with BMI of 40.0-44.9, adult: - Counseled, recommend dietary modification and exercise to promote weight loss - This would also help prevent progression of her pre DM to T2DM (10) Anxiety: - Continue BuSpar Pt is cleared for discharge from [facility] GI service with antibiotics and o/p follow up as outlined above. Additional dose of Lisinopril given this afternoon. Medically and hemodynamically stable for discharge home today with outpatient follow up with GI and PCP. Total Time Total Time Spent Total Time Spent (In Minutes): >30 minutes Discharge Plan Discharge Items Patient Disposition: Home - Self-Care Reason For Visit: ABDOMINAL PAIN Discharge Diagnosis: Abdominal pain related to decreased oxygen flow to colon Activity: Resume your previous activity Non-emergency contact: Primary Care Provider and Personal Finance Instructor Call non-emergency contact if: you have any medication questions and your symptoms worsen Follow-up/Referrals: Freida Love, [Primary Care Provider] - ([facility] stated that Ms. Pabon is no longer a patient of their practice.) Diet: Low Fiber Addtl Attending Provider Instructions: * You were hospitalized with abdominal pain as well as nausea and vomiting * You were found to have a combination of issues causing your symptoms * First was ischemic colitis: this is a decrease of oxygenated blood to your colon-->this can cause pain. Because of this condition, you are at an increased risk of infection in your colon, that is why you were started on antibiotics. Subsequently, we are continuing antibiotics as an outpatient in the form of Cipro and Flagyl. Please take these medications as prescribed until they are gone. Do NOT leave any pills behind. * Continue on a low residue (low fiber) diet. Follow up with Gastroenterology as scheduled in approx 1 month. Will need repeat colonoscopy with prep. * In addition, your blood pressure was uncontrolled while you were here. You were started on a medication called Lisinopril. This helps to lower your blood pressure. * A script for Lisinopril has been sent to your pharmacy of choice. You will need to take this once a day. I would recommend keeping your salt intake to a minimum as well as your caffeine intake. Avoid processed meats and prepackaged foods, or be sure to read the label. * Recommend purchasing an over the counter blood pressure cuff and keep a log. Take it with you to your family doctor. * Recommend calling your family doctor to follow up with them in about 1 week. Pending Studies at Discharge: No Stand-Alone Forms: My [facility], Smoking Cessation Medications and DC Order Prescriptions: New lisinopril 20 mg Tablet 20 mg PO QAM Qty: 30 RF: 0 ciprofloxacin HCl 500 mg tablet 500 mg PO BID Qty: 15 RF: 0 metronidazole 500 mg tablet 500 mg PO Q8H Qty: 22 RF: 0 Continued tizanidine 4 mg tablet 4 mg PO Q6 PRN (Reason: Spasms) RF: 0 triamcinolone acetonide 0.5 % ointment 1 applic TOPICAL BID RF: 0 buspirone 10 mg tablet 10 mg PO BID RF: 0 fluticasone propionate 50 mcg/actuation spray,suspension 2 spray INTRANASAL DAILY RF: 0 cyclobenzaprine 5 mg Tablet 5 mg PO TID PRN (Reason: MUSCLE SPASMS) RF: 0 Anoro Ellipta 62.5-25 mcg/actuation blister with device 1 ea INHALATION DAILY RF: 0 cetirizine [Zyrtec] 10 mg Tablet 10 mg PO DAILY RF: 0 Premarin 0.625 mg/gram cream 1 applic topical HS RF: 0 albuterol sulfate 90 mcg/actuation HFA aerosol inhaler 2 puff INHALATION Q4 PRN (Reason: Shortness Of Breath Or Wheezing) RF: 0 sulindac 200 mg tablet 200 mg PO BID RF: 0 Discharge Orders: Discharge Order (Routine); Ordered 12/02/21 Ordered By: Penelope Galvez/Other Patient Handouts: Ischemic Colitis, Understanding Colitis Admission Data Admit Date/Time: 11/30/21 13:03 Attending Provider: Russell Pino Admit Provider: Jhon Matt Primary Care Provider: Freida Love Other Providers: Jhon Matt ; Aydin Aguilar ; Walter Zuniga Other Interventions: Discharge Summary Assessment (RN) Last Done: 12/02/21 15:20 Supervising Physician Co-Signing Physician Notes Patient was seen and examined independently. Performed a physical exam and discussion on discharge plan during face to face encounter. I discussed the case with Pneelope Maier PAC. I reviewed pertinent past medical social family history and also the plan of care and agree with the plan of care. Patient seen for ischemic colitis. Gi consulted. Patient cleared for discharge as patient tolerated low residual diet. d/w antibiotics. Physical examination as above. I reviewed above note and agree with it. Coding Level of Care Code D/C DAY MANAGEMENT >30 MINS Diagnoses Ischemic colitis K55.9 Gastroenteritis K52.9 Leukocytosis D72.829 Leukocytosis type: unspecified HTN (hypertension) I10 Prediabetes R73.03 CAD (coronary atherosclerotic disease) I25.10 Spinal stenosis M48.00 Morbid obesity with BMI of 40.0-44.9, adult E66.01; Z68.41 Anxiety F41.9 Hypokalemia E87.6
[2021-12-02] MEDS: hydrALAZINE HCL 20 MG/ML VIAL IV PRN (14:23)
[2021-12-02] MEDS ORDERED: FAMOTIDINE 20 MG TAB PO SCH (21:00)
[2021-12-03] MEDS ORDERED: lisinopril 20 MG TAB PO SCH (09:00)
--- NOTE | 2021-12-11 14:57 | GI REPORT ---
Patient Name: Daniel Pabon Procedure Date: 11/30/2021 10:06 AM Date of : 1955 Admit Type: Inpatient Age: 66 Gender: Female Attending MD: Aydin Aguilar MD Procedure: Colonoscopy Providers: Aydin Aguilar MD Referring MD: Freida Love Do Indications: Abnormal CT of the GI tract Medicines: See the Anesthesia note for documentation of the administered medications Complications: No immediate complications. Estimated Blood Loss: Estimated blood loss: none. Procedure: Pre-Anesthesia Assessment: - ASA Grade Assessment: III - A patient with severe systemic disease. After I obtained informed consent, the scope was passed under direct vision. Throughout the procedure, the patient's blood pressure, pulse, and oxygen saturations were monitored continuously. The Endoscope was introduced through the anus and advanced to the terminal ileum. The colonoscopy was performed without difficulty. The patient tolerated the procedure well. Findings: The perianal and digital rectal examinations were normal. The distal colon was decompressed. There was circumferential thumbprinting and ulceration of the mucosa in the splenic flexure and proximal descending colon, approximately 5-6 cm in length. There was moderate edema and moderate luminal narrowing of this area. The mucosa proximal to the splenic flexure was normal, although limited by prep quality. There was a large amount of stool in the colon in the proximal colon. No evidence of colonic obstruction. Impression: Ischemic colitis at splenic flexure. . Recommendation: - Discharge patient to floor. Strict NPO today. Aydin Aguilar M.D. Aydin Aguilar MD 12/11/2021 2:57:08 PM This report has been signed electronically. Note Initiated On: 11/30/2021 10:06 AM Number of Addenda: 0 I attest to the content of the Intraoperative Record and orders documented therein, exceptions below {[id number]}
== END 2021-12-02 17:37 | disposition home or self-care (01) | DRG 394 ==
LOC: ED 18:37 → 3N 18:37 → SUATTDRO 23:31 → 3N 11-29 00:38 → SUATTDRO 11-30 13:03